=== PATIENT | male | born 1995 | race Caucasian/White ===

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

== ENCOUNTER 2017-06-16 10:00 | Emergency (ER) | payer OTHER ==
[2017-06-16 10:14] VITALS: BP 170/110
--- NOTE | 2017-06-16 10:33 | UC ---
Abdominal Pain Male HPI - HPI Summary HPI Summary: 2 weeks ago dx with presumptive flu---treated with Tamiflu---2 weeks ago the symptoms were associated with throwing up blood, bile and undigested food--- today comes to urgent care with right shoulder pain no injury---abdomen pain, vomiting water, food bile some blood-- - History of Current Complaint Chief Complaint: UCGeneralIllness Stated Complaint: SHOULDER PAIN, FEVER, AND NAUSEA Time Seen by Provider: 06/16/17 10:15 Hx Obtained From: Patient Onset/Duration: Gradual Onset, Lasting Weeks - 2, Worse Since - last night Timing: Constant Severity Initially: Moderate Severity Currently: Moderate Pain Intensity: 7 Pain Scale Used: 0-10 Numeric Location: Diffuse Radiates: Yes Radiates to: Back - right shoulder Aggravating Factor(s): Food Associated Signs And Symptoms: Positive: Fever, Decreased Appetite, Nausea, Vomiting - Allergies/Home Medications Allergies/Adverse Reactions: Allergies Allergy/AdvReac Type Severity Reaction Status Date / Time No Known Allergies Allergy Verified 11/26/16 18:45 Home Medications: Home Medications Tretinoin [Retin-A] 45 gm TP DAILY 06/16/17 [History Confirmed 06/16/17] PMH/Surg Hx/FS Hx/Imm Hx Previously Healthy: Yes - Surgical History Surgical History: Yes Surgery Procedure, Year, and Place: EAR TUBES - Family History Known Family History: Positive: None - Social History Occupation: Student Lives: Dormitory/Roommates Alcohol Use: Occasionally Substance Use Type: None Substance Use Comment - Amount & Last Used: unknown Smoking Status (MU): Never Smoked Tobacco Review of Systems Constitutional: Chills, Fatigue Skin: Negative Eyes: Negative ENT: Negative Respiratory: Negative Cardiovascular: Negative Gastrointestinal: Abdominal Pain - right shoulder pain, Vomiting, Nausea Genitourinary: Negative Motor: Negative Neurovascular: Negative Musculoskeletal: Negative, Arthralgia Neurological: Negative Psychological: Negative Is Patient Immunocompromised?: No All Other Systems Reviewed And Are Negative: Yes Physical Exam Triage Information Reviewed: Yes Appearance: Ill-Appearing, Pain Distress, Thin Vital Signs: Initial Vital Signs Temp 99 F 06/16/17 10:11 Pulse 120 06/16/17 10:11 Resp 20 06/16/17 10:11 BP 170/110 06/16/17 10:11 Pulse Ox 100 06/16/17 10:11 Vital Signs Reviewed: Yes Eye Exam: Normal Eyes: Positive: Conjunctiva Clear ENT Exam: Normal ENT: Positive: Normal ENT inspection, Hearing grossly normal, Pharynx normal, TMs normal. Negative: Nasal congestion, Tonsillar swelling, Tonsillar exudate, Trismus, Muffled voice, Hoarse voice, Dental tenderness, Sinus tenderness, Uvula midline Dental Exam: Normal Neck exam: Normal Neck: Positive: Supple, Nontender, No Lymphadenopathy Respiratory Exam: Normal Respiratory: Positive: Chest non-tender, Lungs clear, Normal breath sounds, No respiratory distress, No accessory muscle use Cardiovascular Exam: Normal Cardiovascular: Positive: No Murmur, Pulses Normal, Brisk Capillary Refill, Tachycardia Abdominal Exam: Other Abdomen Description: Positive: Nontender, Other: - right shoulder pain. Negative: No Organomegaly Bowel Sounds: Positive: Present Musculoskeletal Exam: Normal Musculoskeletal: Positive: Strength Intact, ROM Intact, No Edema Neurological Exam: Normal Neurological: Positive: Alert, Muscle Tone Normal Psychological Exam: Normal Skin: Positive: Other - pale warm dry Abd Pain Male Course/Dx - Course [place] Of Treatment: [place] [facility] by private car - Differential Dx/Clinical Impression Provider Diagnoses: acute nausea vomiting, abdomen pain, hypertensive with dx of HTN, Discharge - Sign-Out/Discharge Documenting (check all that apply): Discharge - Discharge Plan Condition: Guarded Disposition: HOME Discharge Disposition Comment: [facility] to [facility] Patient Education Materials: Acute Abdominal Pain (ED) Referrals: [facility] [Outside] No Primary Care Phys,NOPCP [Primary Care Provider] - Additional Instructions: Please report directly to the emergency department - Billing Disposition and Condition Condition: GUARDED Disposition: HOME
== END 2017-06-16 10:30 | disposition home or self-care (01) ==
LOC: UCEAST 10:00
DX: M25.511 Pain in right shoulder (principal); R11.2 Nausea with vomiting, unspecified; R10.9 Unspecified abdominal pain; R50.9 Fever, unspecified; I10 Essential (primary) hypertension
CPT/HCPCS: 99212; G0463

== ENCOUNTER 2017-06-16 10:47 | Emergency (ER) | payer OTHER ==
[2017-06-16] MEDS ORDERED: Famotidine IV* 10 MG/ML 2 ML (20 mg) IV ONE (11:15)
[2017-06-16] MEDS ORDERED: Acetaminophen TAB* 325 MG PO ONE (11:15)
[2017-06-16] MEDS ORDERED: NS 0.9% 1000 ML* 1,000 ML IV ONE (11:15)
--- NOTE | 2017-06-16 11:49 | RAD ---
HISTORY: Fever COMPARISONS: None VIEWS: 2: Frontal and lateral views of the chest. FINDINGS: CARDIOMEDIASTINAL SILHOUETTE: The cardiomediastinal silhouette is normal. BHAVANI: The bhavani are normal. PLEURA: The costophrenic angles are sharp. No pleural abnormalities are noted. LUNG PARENCHYMA: There is patchy alveolar opacification of the infrahilar right lower lung. ABDOMEN: The upper abdomen is clear. There is no subphrenic gas. BONES AND SOFT TISSUES: No bone or soft tissue abnormalities are noted. OTHER: None. IMPRESSION: PATCHY RIGHT LOWER LUNG CONSOLIDATION. RECOMMEND FOLLOW-UP UNTIL RESOLUTION TO EXCLUDE UNDERLYING PULMONARY PARENCHYMAL PATHOLOGY.
[2017-06-16] MEDS ORDERED: Levofloxacin 750 MG IVPREMIX(* 750 MG/150 ML BAG IVPB ONE (11:57)
[2017-06-16 11:58] LABS: Hematocrit 39 % (42-52); Hemoglobin 13.6 g/dl (14.0-18.0); Mean Corpuscular HGB Conc 35 g/dl (31-36); Mean Corpuscular Hemoglobin 30 pg (27-31); Mean Corpuscular Volume 87 fL (80-94); Mean Platelet Volume 9.5 um3 (7.4-10.4); Platelet Count 228 10^3/ul (150-450); Red Blood Count 4.51 10^6/ul (4.0-5.4); Red Cell Distribution Width 14 % (10.5-15); White Blood Count 27.1 10^3/ul (3.5-10.8)
[2017-06-16 12:14] LABS: ABS Basophils 0 10^3/ul (0-0.2); ABS Eosinophils 0 10^3/ul (0-0.6); ABS Lymphocytes 0.6 10^3/ul (1.0-4.8); ABS Monocytes 2.9 10^3/ul (0-0.8); ABS Neutrophils 23.5 10^3/ul (1.5-7.7); ABS Nucleated RBC 0 10^3/ul; Eosinophil % 0 % (0-6); Lymphocyte % 2.4 % (25-47); Nucleated Red Blood Cells % 0
[2017-06-16 12:15] LABS: EGFR Non-African American 98.7 (>60)
--- NOTE | 2017-06-16 12:57 | RAD ---
HISTORY: Right upper quadrant pain COMPARISONS: None TECHNIQUE: Multiple transverse and longitudinal ultrasound images were obtained of the right upper quadrant of the abdomen using grayscale and color Doppler imaging. FINDINGS: LIVER: The liver is normal in shape, size, contour, and echogenicity. There are no focal parenchymal masses. There is normal hepatopedal flow of the portal vein on Doppler imaging. BILIARY TREE: There is no intrahepatic or extrahepatic biliary dilatation. The common duct measures 0.3 cm. GALLBLADDER: The gallbladder is well-visualized. There is no cholelithiasis, gallbladder wall thickening, pericholecystic fluid, or sonographic Smith sign. PANCREAS: The head of the pancreas is unremarkable. The tail of the pancreas is not well visualized secondary to overlying bowel gas. RIGHT KIDNEY: The right kidney is normal in shape, size, contour, and echogenicity. There is no hydronephrosis or nephrolithiasis. The right kidney measures 12 x 6.9 x 5.8 cm. AORTA AND IVC: The aorta and IVC are unremarkable. FLUID: There are no pleural effusions. There is no free fluid within the hepatorenal recess. OTHER FINDINGS: None. IMPRESSION: NO ACUTE SONOGRAPHIC PATHOLOGY OF THE VISUALIZED PORTION OF THE ABDOMEN.
[2017-06-16 15:49] LABS: Urine Appearance Clear; Urine Blood Negative (Negative); Urine Color Yellow; Urine Ketones Negative (Negative); Urine Protein Negative (Negative); Urine Specific Gravity 1.018 (1.010-1.030); Urine Urobilinogen Negative (Negative)
[2017-06-16] MEDS ORDERED: Ibuprofen TAB* 800 MG PO ONE (16:18)
--- NOTE | 2017-06-16 16:31 | ED ---
Trisha Avila Gabriel, scribed for Victor M Burgess MD on 06/16/17 at 1118 . GI/ HPI - HPI Summary HPI Summary: This patient is a 22 year old M presenting to [facility] with a chief complaint of n/ v that began and persisted all night last night. [facility] and was diagnosed with the flu. Pt took 5 days of tamiflu and felt better until 2 days ago when he became febrile. The patient rates the pain 7/10 in severity. Patient reports right shoulder pain and ABD pain. Patient denies trauma, CP, and SOB. - History of Current Complaint Chief Complaint: EDNauseaVomitDiarrh Time Seen by Provider: 06/16/17 11:06 Stated Complaint: NAUSEA/SHLD PAIN Hx Obtained From: Patient Onset/Duration: Started Days Ago - 2, Still Present Timing: Constant Severity: Moderate Current Severity: Moderate Pain Intensity: 7 Location of Pain: Diffuse Associated Signs and Symptoms: Positive: Other: - n/v, febrile, shoulder pain, and some ABD pain - Allergy/Home Medications Allergies/Adverse Reactions: Allergies Allergy/AdvReac Type Severity Reaction Status Date / Time No Known Allergies Allergy Verified 06/16/17 10:48 PMH/Surg Hx/FS Hx/Imm Hx Endocrine/Hematology History: Denies: Hx Diabetes Cardiovascular History: Denies: Hx Hypertension, Hx Pacemaker/ICD Respiratory History: Reports: Hx Seasonal Allergies Denies: Hx Chronic Obstructive Pulmonary Disease (COPD) Sensory History: Denies: Hx Hearing Aid Psychiatric History: Denies: Hx Eating Disorder, Hx Panic Disorder, Hx of Violent Episodes Against Others - Surgical History Surgery Procedure, Year, and Place: EAR TUBES Infectious Disease History: No Infectious Disease History: Denies: Traveled Outside the [place] in Last 30 Days - Family History Known Family History: Positive: Other - mother has MS - Social History Occupation: Student Alcohol Use: Occasionally Hx Substance Use: No Substance Use Type: Reports: None Substance Use Comment - Amount & Last Used: unknown Hx Tobacco Use: No Smoking Status (MU): Never Smoked Tobacco Review of Systems Constitutional: Negative - trauma Positive: Fever Negative: Chest Pain Negative: Shortness Of Breath Positive: Abdominal Pain, Vomiting, Nausea Positive: Other - right shoulder pain All Other Systems Reviewed And Are Negative: Yes Physical Exam - Summary Physical Exam Summary: VITAL SIGNS: Reviewed. GENERAL: Patient is a well-developed and nourished male who is lying comfortable in the stretcher. Patient is not in any acute respiratory distress. Pt feels febrile HEAD AND FACE: No signs of trauma. No ecchymosis, hematomas or skull depressions. No sinus tenderness. EYES: PERRLA, EOMI x 2, No injected conjunctiva, no nystagmus. EARS: Hearing grossly intact. Ear canals and tympanic membranes are within normal limits. MOUTH: Oropharynx within normal limits. NECK: Supple, trachea is midline, no adenopathy, no JVD, no carotid bruit, no c- spine tenderness, neck with full ROM. CHEST: Symmetric, no tenderness at palpation LUNGS: Clear to auscultation bilaterally. No wheezing or crackles. CVS: Regular rate and rhythm, S1 and S2 present, no murmurs or gallops appreciated. ABDOMEN: Soft, No signs of distention. No rebound no guarding, and no masses palpated. Bowel sounds are normal. Positive epigastria and RUQ tenderness. EXTREMITIES: FROM in all major joints, no edema, no cyanosis or clubbing. NEURO: Alert and oriented x 3. No acute neurological deficits. Speech is normal and follows commands. SKIN: Dry and warm Triage Information Reviewed: Yes Vital Signs On Initial Exam: Initial Vitals Temp Pulse Resp BP Pulse Ox 100.2 F 123 14 117/62 100 06/16/17 10:48 06/16/17 10:48 06/16/17 10:48 06/16/17 10:48 06/16/17 10:48 Vital Signs Reviewed: Yes Diagnostics - Vital Signs Vital Signs Temp Pulse Resp BP Pulse Ox 06/16/17 10:48 100.2 F 123 14 117/62 100 - Laboratory Lab Results: Lab Results 06/16/17 06/16/17 06/16/17 Range/Units 11:40 11:40 11:40 WBC 27.1 H (3.5-10.8) 10^3/ul RBC 4.51 (4.0-5.4) 10^6/ul Hgb 13.6 L (14.0-18.0) g/dl Hct 39 L (42-52) % MCV 87 (80-94) fL MCH 30 (27-31) pg MCHC 35 (31-36) g/dl RDW 14 (10.5-15) % Plt Count 228 (150-450) 10^3/ul MPV 9.5 (7.4-10.4) um3 Neut % (Auto) 87.0 H (38-83) % Lymph % (Auto) 2.4 L (25-47) % Gilliam % (Auto) 10.5 H (0-7) % Eos % (Auto) 0 (0-6) % Baso % (Auto) 0.1 (0-2) % Absolute Neuts (auto) 23.5 H (1.5-7.7) 10^3/ul Absolute Lymphs (auto) 0.6 L (1.0-4.8) 10^3/ul Absolute Monos (auto) 2.9 H (0-0.8) 10^3/ul Absolute Eos (auto) 0 (0-0.6) 10^3/ul Absolute Basos (auto) 0 (0-0.2) 10^3/ul Absolute Nucleated RBC 0 10^3/ul Nucleated RBC % 0 Sodium 132 L (139-145) mmol/L Potassium 3.9 (3.5-5.0) mmol/L Chloride 101 (101-111) mmol/L Carbon Dioxide 22 (22-32) mmol/L Anion Gap 9 (2-11) mmol/L BUN 11 (6-24) mg/dL Creatinine 0.97 (0.67-1.17) mg/dL Est GFR ( Amer) 126.9 (>60) Est GFR (Non-Af Amer) 98.7 (>60) BUN/Creatinine Ratio 11.3 (8-20) Glucose 156 H (70-100) mg/dL Lactic Acid 1.8 (0.5-2.0) mmol/L Calcium 9.1 (8.6-10.3) mg/dL Total Bilirubin 2.30 H (0.2-1.0) mg/dL AST 16 (13-39) U/L ALT 15 (7-52) U/L Alkaline Phosphatase 62 (34-104) U/L Total Creatine Kinase 66 (10-223) U/L C-Reactive Protein 165.50 H (< 5.00) mg/L Total Protein 7.6 (6.4-8.9) g/dL Albumin 4.0 (3.2-5.2) g/dL Globulin 3.6 (2-4) g/dL Albumin/Globulin Ratio 1.1 (1-3) Amylase 31 (29-103) U/L Lipase < 10 L (11.0-82.0) U/L Urine Color Urine Appearance Urine pH (5-9) Ur Specific Monett (1.010-1.030) Urine Protein (Negative) Urine Ketones (Negative) Urine Blood (Negative) Urine Nitrate (Negative) Urine Bilirubin (Negative) Urine Urobilinogen (Negative) Ur Leukocyte Esterase (Negative) Urine WBC (Auto) (Absent) Urine RBC (Auto) (Absent) Urine Bacteria (Absent) Urine Glucose (Negative) 06/16/17 Range/Units 14:32 WBC (3.5-10.8) 10^3/ul RBC (4.0-5.4) 10^6/ul Hgb (14.0-18.0) g/dl Hct (42-52) % MCV (80-94) fL MCH (27-31) pg MCHC (31-36) g/dl RDW (10.5-15) % Plt Count (150-450) 10^3/ul MPV (7.4-10.4) um3 Neut % (Auto) (38-83) % Lymph % (Auto) (25-47) % Gilliam % (Auto) (0-7) % Eos % (Auto) (0-6) % Baso % (Auto) (0-2) % Absolute Neuts (auto) (1.5-7.7) 10^3/ul Absolute Lymphs (auto) (1.0-4.8) 10^3/ul Absolute Monos (auto) (0-0.8) 10^3/ul Absolute Eos (auto) (0-0.6) 10^3/ul Absolute Basos (auto) (0-0.2) 10^3/ul Absolute Nucleated RBC 10^3/ul Nucleated RBC % Sodium (139-145) mmol/L Potassium (3.5-5.0) mmol/L Chloride (101-111) mmol/L Carbon Dioxide (22-32) mmol/L Anion Gap (2-11) mmol/L BUN (6-24) mg/dL Creatinine (0.67-1.17) mg/dL Est GFR ( Amer) (>60) Est GFR (Non-Af Amer) (>60) BUN/Creatinine Ratio (8-20) Glucose (70-100) mg/dL Lactic Acid (0.5-2.0) mmol/L Calcium (8.6-10.3) mg/dL Total Bilirubin (0.2-1.0) mg/dL AST (13-39) U/L ALT (7-52) U/L Alkaline Phosphatase (34-104) U/L Total Creatine Kinase (10-223) U/L C-Reactive Protein (< 5.00) mg/L Total Protein (6.4-8.9) g/dL Albumin (3.2-5.2) g/dL Globulin (2-4) g/dL Albumin/Globulin Ratio (1-3) Amylase (29-103) U/L Lipase (11.0-82.0) U/L Urine Color Yellow Urine Appearance Clear Urine pH 6.0 (5-9) Ur Specific Monett 1.018 (1.010-1.030) Urine Protein Negative (Negative) Urine Ketones Negative (Negative) Urine Blood Negative (Negative) Urine Nitrate Negative (Negative) Urine Bilirubin Negative (Negative) Urine Urobilinogen Negative (Negative) Ur Leukocyte Esterase 2+ A (Negative) Urine WBC (Auto) 3+(>20/hpf) A (Absent) Urine RBC (Auto) Absent (Absent) Urine Bacteria Absent (Absent) Urine Glucose Negative (Negative) Result Diagrams: 06/16/17 11:40 06/16/17 11:40 Lab Statement: Any lab studies that have been ordered have been reviewed, and results considered in the medical decision making process. - Radiology CXR Radiology Interpretation Completed By: Radiologist - PATCHY RIGHT LOWER LUNG CONSOLIDATION. RECOMMEND FOLLOW-UP UNTIL RESOLUTION TO EXCLUDE UNDERLYING PULMONARY PARENCHYMAL PATHOLOGY. ED physician has reviewed this radiology report. - Ultrasound No standard instances Ultrasound Interpretation Completed By: Radiologist - US gallbladder reveals NO ACUTE SONOGRAPHIC PATHOLOGY OF THE VISUALIZED PORTION OF THE ABDOMEN. ED physician has reviewed this radiology report. Re-Evaluation - Re-Evaluation First Eval Re-Evaluation Time: 16:01 Change: Unchanged Comment: Dr. Miranda has come and examined the patient and she has decided that he should be discharged home. GIGU Course/Dx - Course Assessment/Plan: This patient is a 22 year old M presenting to [facility] with a chief complaint of n/v that began and persisted all night last night. [facility] and was diagnosed with the flu. Pt took 5 days of tamiflu and felt better until 2 days ago when he became febrile. The patient rates the pain 7/10 in severity. Patient reports right shoulder pain and ABD pain. Patient denies trauma, CP, and SOB. CXR reveals, per radiologist, PATCHY RIGHT LOWER LUNG CONSOLIDATION. RECOMMEND FOLLOW-UP UNTIL RESOLUTION TO EXCLUDE. UNDERLYING PULMONARY PARENCHYMAL PATHOLOGY. US gallbladder reveals NO ACUTE SONOGRAPHIC PATHOLOGY OF THE VISUALIZED PORTION OF THE ABDOMEN. Test results with no significant abnormalities except for WBC 27.1 with left shift and a CRP of 165. Pt seems to have soft blood pressure, is febrile, and is still tachycardic. Therefore he was given Levaqiun, IV fluid, and Tylenol. Since the patient seems to be going into sepsis I discussed the case with Dr. Miranda who accepts the patient for admission. He will be diagnosed with sepsis and pneumonia. The patient is agreeable with this plan. The pt is hemodynamically stable, alert and oriented x3. Dr. Miranda assess and examined the patient and she has decided to discharged the patient home. Patient agreed. I will print the discharged for Dr. Miranda. - Diagnoses Provider Diagnoses: PNA (pneumonia), Sepsis - Physician Notifications Discussed Care Of Patient With: Whit Miranda Time Discussed With Above Provider: 13:42 Instructed by Provider To: Admit As Inpatient - Critical Care Time Critical Care Time: 30-74 min - 40 min Discharge - Sign-Out/Discharge Documenting (check all that apply): Discharge - Discharge Plan Condition: Stable Disposition: HOME Prescriptions: Levofloxacin TAB* [Levaquin TAB*] 750 mg PO DAILY #9 tab Ondansetron TAB* [Zofran 4 MG Tab*] 4 mg PO Q6H PRN #15 tab PRN Reason: Vomiting Patient Education Materials: Community Acquired Pneumonia (DC) Referrals: [facility]IAN REFERRAL [Outside] - 3 Days Additional Instructions: RETURN TO THE EMERGENCY DEPARTMENT FOR CHANGING OR WORSENING SYMPTOMS. - Billing Disposition and Condition Condition: STABLE Disposition: HOME The documentation as recorded by the Trisha thompson Gabriel accurately reflects the service I personally performed and the decisions made by , Victor M Burgess MD.
[2017-06-16 17:28] VITALS: BP 123/56
--- NOTE | 2017-06-16 22:12 | CONS ---
CONSULTATION NOTE: DATE OF CONSULT: 06/16/17 - EMERGENCY DEPT TIME OF CONSULTATION: 3 p.m. CHIEF COMPLAINT: Nausea, vomiting, cough, and shoulder pain. HISTORY OF PRESENT ILLNESS: This is a 22-year-old man who had Influenza two weeks ago and is presenting to the emergency department with right shoulder pain that began last night while he was watching a movie. It was associated with some nausea and vomiting and he also reports a productive cough and chills over the past two days. He had Influenza two weeks ago, took a five-day course of Tamiflu and felt that he recovered fully. He has been attending his courses at [employer] without any issue; however, over the past two days, he developed some chills, cough productive of yellow sputum, malaise and then last night while he was watching the movie developed deep right-sided shoulder pain that he could not localize. He had several episodes of nausea and vomiting throughout the night and this morning went to urgent care where they sent him to the emergency department. In the emergency department, he was found to have a right lower lobe pneumonia, so we are asked to evaluate him for admission. PAST MEDICAL HISTORY: None. HOME MEDICATIONS: None. ALLERGIES: No known drug allergies. SOCIAL HISTORY: He lives in house at [employer]. He is studying economic. He does not smoke cigarettes. He drinks alcohol occasionally but he has not had any recent binges or black outs. REVIEW OF SYSTEMS: Positive for chills, nausea, vomiting, productive cough. Negative for diarrhea, travel, rashes, headache, abdominal pain, chest pain, weakness. PHYSICAL EXAM: Temperature 100.9, heart rate 98, pulse ox 97% on room air, blood pressure 108/56, respiratory rate 18. General: Alert, well appearing, young man, in no distress. HEENT: Pupils are equal, round, and reactive to light. Normal conjunctivae. Mucosa is moist. He has no pharyngeal exudates or erythema. He has no cervical or supraclavicular lymphadenopathy. Chest: Regular rate and rhythm with no murmurs. His lungs are clear with good air movement. He has no wheezes or rhonchi. Abdomen: Soft, nontender, nondistended. His Smith sign is negative. His obturator sign is negative. His liver is nonpalpable. Extremities: No edema. No ulcers. His right shoulder is nontender to palpation. He has full active and passive range of motion. His strength is 5/5 in all 4 extremities and provocative right shoulder testing is negative. DIAGNOSTIC STUDIES/LAB DATA: White blood cell 27.5, hemoglobin 13.6, platelets 228. Sodium 132, potassium 3.9, chloride 101, bicarb 22, creatinine 0.97, glucose 156, lactate 1.8. CRP 165. Lipase less than 10. Chest x-ray, patchy right lower lung consolidation. Recommended followup until resolution to exclude underlying pulmonary parenchymal pathology. Gallbladder ultrasound, no acute sonographic pathology of the visualized portion of the abdomen. The gallbladder was well visualized with no cholelithiasis, gallbladder wall thickening, pericholecystic fluid or sonographic Smith sign. ASSESSMENT AND PLAN: This is a 22-year-old man with no past medical history presenting with nausea, vomiting, shoulder pain, and cough and is found to have a right lower lobe pneumonia. 1. Right lower lobe pneumonia, community acquired. Based on his CURB-65 and PSI scores, he can safely be treated as an outpatient. I have discussed this option with him and he is amenable and actually prefers to be treated with outpatient antibiotics. He has no drug allergies and has not been on any recent antibiotics and has not been hospitalized recently. I would recommend treating with levofloxacin 750 mg daily to cover staph due to his recent Influenza, however, based on objective scoring system, he is low risk to be treated as an outpatient with p.o. antibiotics and has no need for IV antibiotics. 2. Right shoulder pain. I suspect this is referred pain due to his right lower lobe pneumonia. Provocative testing is negative on physical exam and a right upper quadrant ultrasound was negative in the emergency department. He does describe a visceral sounding pain, which is consistent with referred pain. He has no evidence of rotator cuff injury and has no history to support a mechanical dysfunction. He may benefit from analgesia, however, I will defer this to the emergency department physician. 3. Nausea and vomiting. Again this is likely related to the diaphragmatic irritation and can be treated with p.r.n. Zofran. This has since resolved and he feels well at this time without nausea or vomiting. Thank you for allowing us to participate in the care of this patient. Please call us back with any further questions. [id number]/[facility] #: [id number] KALEIDA HEALTHNeymar
== END 2017-06-16 17:27 | disposition home or self-care (01) ==
LOC: ED 10:47
DX: A41.9 Sepsis, unspecified organism (principal); J18.9 Pneumonia, unspecified organism; R11.2 Nausea with vomiting, unspecified; M25.511 Pain in right shoulder
CPT/HCPCS: 36415; 71046; 76705; 80053; 81003; 81015; 82150; 82550; 83605; 83690; 85025; 86140; 87040; 87086; 96365; 96375; 99291; A9270-GY

== ENCOUNTER 2017-06-17 17:51 | Observation (INO) | payer OTHER ==
[2017-06-17] MEDS ORDERED: NS 0.9% 1000 ML* 1,000 ML IV ONE (19:47)
[2017-06-17 20:06] LABS: Hematocrit 37 % (42-52); Hemoglobin 12.5 g/dl (14.0-18.0); Mean Corpuscular HGB Conc 34 g/dl (31-36); Mean Corpuscular Hemoglobin 30 pg (27-31); Mean Corpuscular Volume 88 fL (80-94); Mean Platelet Volume 9.1 um3 (7.4-10.4); Platelet Count 255 10^3/ul (150-450); Red Blood Count 4.15 10^6/ul (4.0-5.4); Red Cell Distribution Width 13 % (10.5-15); White Blood Count 24.7 10^3/ul (3.5-10.8)
[2017-06-17 20:10] LABS: ABS Basophils 0.1 10^3/ul (0-0.2); ABS Eosinophils 0 10^3/ul (0-0.6); ABS Lymphocytes 1.3 10^3/ul (1.0-4.8); ABS Monocytes 2.1 10^3/ul (0-0.8); ABS Neutrophils 21.2 10^3/ul (1.5-7.7); ABS Nucleated RBC 0 10^3/ul; Eosinophil % 0.1 % (0-6); Lymphocyte % 5.3 % (25-47); Nucleated Red Blood Cells % 0
[2017-06-17 20:15] LABS: INR 1.61 (0.77-1.02)
[2017-06-17 20:23] LABS: EGFR Non-African American 110.4 (>60)
[2017-06-17] MEDS ORDERED: Iohexol 350* (CONTRAST) 500 ML MDV IV ONE (20:23)
--- NOTE | 2017-06-17 20:42 | RAD ---
INDICATION: Chest pain. Right upper quadrant pain. Negative gallbladder sonogram. Evaluate for pulmonary embolus. COMPARISON: Gallbladder sonogram June 16, 2017; chest x-ray June 16, 2017 TECHNIQUE: Axial source images were obtained from the thoracic inlet to the hemidiaphragms following administration of [address] angiographic technique was utilized. Coronal and sagittal reconstructed images were acquired. CHEST FINDINGS: Neck/thyroid: The visualized neck to include the thyroid appear normal. Chest wall: There are no acute abnormalities of the bony thorax or chest wall. There is no supraclavicular, infraclavicular, or axillary lymphadenopathy. Lungs : There is a right lower lobe infiltrate with consolidation. There is a small right-sided effusion. The pulmonary interstitium appears normal. There are no endobronchial lesions. Cardiomediastinal structures: There is no CT evidence of acute pulmonary embolic disease. The heart is normal in size. There is no pericardial effusion. There is no evidence of aortic aneurysm or dissection. There is no mediastinal or hilar adenopathy. There is presumed residual thymic tissue in the prevascular space The esophagus appears normal. Pleura : There are no pleural-based masses or effusions. Other: None. IMPRESSION: RIGHT LOWER LOBE INFILTRATE AND EFFUSION. SUGGEST CHEST X-RAY FOLLOW-UP. NO CT EVIDENCE OF ACUTE PULMONARY EMBOLIC DISEASE. PRESUMED RESIDUAL THYMIC TISSUE.
[2017-06-17] MEDS ORDERED: Vancomycin(*) 1,000 MG in NS 0.9% 250 ML* 250 ML IVPB ONE (20:57)
[2017-06-17] MEDS ORDERED: Al Hydrox/Mg Hydrox/Simet LIQ* 30 ML UDC PO PRN (22:28)
[2017-06-18] MEDS: Acetaminophen TAB* 325 MG PO PRN ×4 (00:41→20:06)
--- NOTE | 2017-06-18 03:35 | HP ---
CC: [facility] * HISTORY AND PHYSICAL: DATE OF ADMISSION: 06/17/17 TIME OF EVALUATION: 2200. PRIMARY CARE PHYSICIAN: [facility]. CHIEF COMPLAINT: Hemoptysis. HISTORY OF PRESENT ILLNESS: This is a 22-year-old male who presented to the emergency room on 06/16/17 after having influenza 2 weeks ago, was diagnosed with pneumonia, was consulted by the hospitalist service. They sent him home on Levaquin and a prescription with Zofran. The patient states that he was doing okay, no longer having any fevers. No more lightheadedness. However, he was still having some pleuritic pain on the right side and began coughing up blood this afternoon, so he thought that [facility] would have been closed for spring and came here instead. He did have nausea, vomiting yesterday. He is no longer having any nausea, vomiting. The coughing seems to be unchanged , but he is no longer gagging on his mucus and as mentioned, no longer having any fevers. No diarrhea. No abdominal pain. No urinary symptoms. No rash otherwise. Review of systems is negative. In the emergency room, the patient had labs, imaging. He was given a liter of fluid and vancomycin, referred to the hospitalist service for further evaluation. PAST MEDICAL HISTORY: Unremarkable. Just diagnosed with community acquired pneumonia on 06/16/17. MEDICATIONS: 1. Retin-A 45 g topically daily. 2. Zofran 4 mg q.6 hours as needed. 3. Levaquin 750 mg p.o. daily. He has completed 2 days of Levaquin. ALLERGIES: No known drug allergies. FAMILY HISTORY: Parents are alive and healthy. 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 He denies any smoking. No illicit drugs. He occasionally drinks alcohol. He is from [place], [place]. REVIEW OF SYSTEMS: A 14-point review of systems mentioned in the HPI, otherwise negative. PHYSICAL EXAMINATION GENERAL: In no acute distress. Resting comfortably. VITAL SIGNS: Temp 100.3, pulse rate 106, respiratory rate 20, oxygen saturation 98% on room air, and blood pressure 107/58. HEENT: Head: Normocephalic. Pupils are equal and reactive. Oropharynx: Mucous membranes moist. NECK: Supple. No lymphadenopathy. RESPIRATORY: Some faint rhonchi in the right lower lung. No tachypnea. No increased work of breathing. CARDIAC: Tachycardia. No murmurs, rubs or gallops. ABDOMEN: Soft, nontender, nondistended. EXTREMITIES: No clubbing, cyanosis, or edema. +2 DPs. NEUROLOGIC: Alert and oriented x3. No gross focal neurological deficits. DIAGNOSTIC STUDIES/LAB DATA: White count 24.7, hemoglobin 12.5, hematocrit 37 , platelets 255. INR is 1.61. Sodium 135, potassium 4.2, chloride 100, bicarb 26, BUN 13, creatinine 0.88, glucose 121. Total bili is 1.3. Urine shows 2+ leukocytes. CTA: Right lower lobe infiltrate and effusion, suggest chest x- ray followup. No CT evidence of acute pulmonary embolic disease, presumed residual thymic tissue. ASSESSMENT: This is a 22-year-old male with a diagnosis of community-acquired pneumonia after recent influenza type virus, who presents to the emergency room with hemoptysis. 1. Hemoptysis. I suspect this is benign in the setting of persistent coughing. He did have a mild decrease in his H and H from 06/16/17 to today. His white count is improving. He is no longer febrile. He no longer has high-grade temperatures. I suspect clinically he is improving, but now with hemoptysis. Plan: We will admit him for observation. I am going to continue him on his p.o. Levaquin. We will keep him on IV fluids and monitor his hemoptysis and obtain an H and H in the morning. He also was noted to have an elevated INR, could be in the setting of his acute illness or he may have an underlying coagulopathy. We will repeat an INR in the morning and keep him on a soft diet in the interim. 2. FEN. As mentioned IV fluids with a soft diet. 3. DVT prophylaxis. The patient scores a 0 on the risk profile. We will encourage ambulation. 4. Code status: Full code. TIME SPENT: Greater than 45 minutes spent doing the history and physical, more than half time spent in direct patient contact. [id number]/[facility] #: [id number] KENDRICK
--- NOTE | 2017-06-18 05:05 | ED ---
Anuel Avila Tecjoon, scribed for Jud Goss MD on 06/17/17 at 1949 . HPI Cardiac - HPI Summary HPI Summary: This patient is a 22 year old male presenting to [facility] with a chief complaint of hemoptysis since earlier today. Patient states that the blood is not frothy, but phlemy, at around a teaspoons amount. Patient states that he has had around 5-6 episodes. The pain is rated 0/10 in severity currently. Symptoms aggravated by deep breaths. Symptoms alleviated by nothing. The patient treated the sx with Levaquin and Tamiflu [employer]. Patient additionally reports RUQ abd pain when breathing too heavily or during coughing episodes. Patient denies fever or chills. Patient was seen two weeks ago and was diagnosed with the flu. Patient was given levaquin and Tamiflu. - History of Current Complaint Chief Complaint: EDGeneral Stated Complaint: COUGHING UP BLOOD Time Seen by Provider: 06/17/17 19:20 Hx Obtained From: Patient Onset/Duration: Started Days Ago - 1 Timing: Intermittent Current Severity: None Pain Intensity: 0 Pain Scale Used: 0-10 Numeric Aggravating Factor(s): Deep Breaths Alleviating Factor(s): Nothing Associated Signs and Symptoms: Positive: Negative - fever, chills, Other: - hemoptysis - Allergy/Home Medications Allergies/Adverse Reactions: Allergies Allergy/AdvReac Type Severity Reaction Status Date / Time No Known Allergies Allergy Verified 06/16/17 10:48 PMH/Surg Hx/FS Hx/Imm Hx Previously Healthy: Yes Endocrine/Hematology History: Denies: Hx Diabetes Cardiovascular History: Denies: Hx Hypertension, Hx Pacemaker/ICD Respiratory History: Reports: Hx Seasonal Allergies Denies: Hx Chronic Obstructive Pulmonary Disease (COPD) Sensory History: Denies: Hx Hearing Aid EENT History: Denies: Hx Deafness Psychiatric History: Denies: Hx Eating Disorder, Hx Panic Disorder, Hx of Violent Episodes Against Others - Surgical History Surgery Procedure, Year, and Place: EAR TUBES Infectious Disease History: No Infectious Disease History: Denies: Traveled Outside the [place] in Last 30 Days - Family History Known Family History: Positive: Other - mother has MS - Social History Occupation: Student Alcohol Use: Occasionally Hx Substance Use: No Substance Use Type: Reports: None Substance Use Comment - Amount & Last Used: unknown Hx Tobacco Use: No Smoking Status (MU): Never Smoked Tobacco Review of Systems Negative: Fever, Chills Positive: Cough, Other - hemoptysis Positive: Abdominal Pain All Other Systems Reviewed And Are Negative: Yes Physical Exam - Summary Physical Exam Summary: VITAL SIGNS: Reviewed. GENERAL: Patient is a well-developed and nourished male who is lying comfortable in the stretcher. HEAD AND FACE: No signs of trauma. No ecchymosis, hematomas or skull depressions. No sinus tenderness. EYES: PERRLA, EOMI x 2, No injected conjunctiva, no nystagmus. EARS: Hearing grossly intact. Ear canals and tympanic membranes are within normal limits. MOUTH: Oropharynx within normal limits. NECK: Supple, trachea is midline, no adenopathy, no JVD, no carotid bruit, no c- spine tenderness, neck with full ROM. CHEST: Symmetric, no tenderness at palpation LUNGS: Decreased breath sounds bilaterally. CVS: Regular rate and rhythm, S1 and S2 present, no murmurs or gallops appreciated. ABDOMEN: Soft, non-tender. No signs of distention. No rebound no guarding, and no masses palpated. Bowel sounds are normal. EXTREMITIES: FROM in all major joints, no edema, no cyanosis or clubbing. NEURO: Alert and oriented x 3. No acute neurological deficits. Speech is normal and follows commands. SKIN: Dry and warm Triage Information Reviewed: Yes Vital Signs On Initial Exam: Initial Vitals Temp Pulse Resp BP Pulse Ox 100.3 F 106 20 107/58 98 06/17/17 17:59 06/17/17 17:59 06/17/17 17:59 06/17/17 17:59 06/17/17 17:59 Vital Signs Reviewed: Yes Diagnostics - Vital Signs Vital Signs Temp Pulse Resp BP Pulse Ox 06/17/17 17:59 100.3 F 106 20 107/58 98 - Laboratory Result Diagrams: 06/17/17 19:56 06/17/17 19:56 Lab Statement: Any lab studies that have been ordered have been reviewed, and results considered in the medical decision making process. - CT CT Chest/Thorax CT Interpretation: Positive (See Comments) - CT Chest/Thorax reveals, per radiologist, IMPRESSION: RIGHT LOWER LOBE INFILTRATE AND EFFUSION. SUGGEST CHEST X-RAY FOLLOW-UP. NO CT EVIDENCE OF ACUTE PULMONARY EMBOLIC DISEASE. PRESUMED RESIDUAL THYMIC TISSUE. ED physician has reviewed this radiology report. CT Interpretation Completed By: Radiologist Disposition - Course Course Of Treatment: This patient is a 22 year old male presenting to [facility] with a chief complaint of hemoptysis since earlier today. Patient states that the blood is not frothy, but phlemy, at around a teaspoons amount. Patient states that he has had around 5-[address] Chest/Thorax reveals, per radiologist, IMPRESSION: RIGHT LOWER LOBE INFILTRATE AND EFFUSION. SUGGEST CHEST X-RAY FOLLOW-UP. NO CT EVIDENCE OF ACUTE PULMONARY EMBOLIC DISEASE. PRESUMED RESIDUAL THYMIC TISSUE. ED physician has reviewed this radiology report. Bloodwork Obtained. Urinalysis Obtained. In the ED course the patient was given Vancomycin, Iohexol. We discussed patient care with Dr. Duff ( Hospitalist) at 2030 and they agreed to admit the patient. Patient will be admitted with a diagnosis of Right lower lobe pneumonia and hemoptysis. The patient is agreeable with this plan. - Diagnoses Provider Diagnoses: Right lower lobe pneumonia, Hemoptysis - Physician Notifications Discussed Care Of Patient With: Magalis Duff - Hospitalist Time Discussed With Above Provider: 20:31 - We discussed patient care with Dr. Duff (Hospitalist) at 2030 and they agreed to admit the patient. Instructed by Provider To: Admit As Inpatient Discharge - Sign-Out/Discharge Documenting (check all that apply): Discharge - Admitted to hospitalist - Discharge Plan Condition: Stable Disposition: ADMITTED TO [facility] Referrals: [facility] - Neil COSBY [Primary Care Provider] - The documentation as recorded by the Anuel thompson Tecjoon accurately reflects the service I personally performed and the decisions made by , Jud Goss MD.
[2017-06-18] MEDS ORDERED: guaiFENesin ER TAB 600 MG ONE (06:04)
[2017-06-18] MEDS ORDERED: HYDROcodone/ACETAMIN 5-325 MG* 1 TAB ONE (06:10)
[2017-06-18] MEDS: HYDROcodone/ACETAMIN 5-325 MG* 1 TAB PO PRN ×3 (06:11→21:48)
[2017-06-18] MEDS: guaiFENesin ER TAB 600 MG PO SCH ×3 (06:11→21:48)
[2017-06-18 06:28] LABS: Hematocrit 33 % (42-52); Hemoglobin 11.2 g/dl (14.0-18.0); Mean Corpuscular HGB Conc 34 g/dl (31-36); Mean Corpuscular Hemoglobin 30 pg (27-31); Mean Corpuscular Volume 88 fL (80-94); Mean Platelet Volume 8.8 um3 (7.4-10.4); Platelet Count 235 10^3/ul (150-450); Red Blood Count 3.76 10^6/ul (4.0-5.4); Red Cell Distribution Width 13 % (10.5-15); White Blood Count 16.9 10^3/ul (3.5-10.8)
[2017-06-18 06:33] LABS: ABS Basophils 0 10^3/ul (0-0.2); ABS Eosinophils 0 10^3/ul (0-0.6); ABS Lymphocytes 1.3 10^3/ul (1.0-4.8); ABS Monocytes 1.6 10^3/ul (0-0.8); ABS Neutrophils 13.9 10^3/ul (1.5-7.7); ABS Nucleated RBC 0 10^3/ul; Eosinophil % 0.2 % (0-6); INR 1.42 (0.77-1.02); Lymphocyte % 7.6 % (25-47); Nucleated Red Blood Cells % 0
[2017-06-18] MEDS: Levofloxacin TAB* 750 MG PO SCH (08:26)
[2017-06-18] MEDS: NS 0.9% 1000 ML* 1,000 ML IV SCH ×2 (08:26→17:41)
--- NOTE | 2017-06-18 10:31 | PN ---
Subjective Date of Service: 06/18/17 Interval History: Pain R shoulder relieved by APAP/hydrocodone. Occ hemoptysis. Pain is pleuritic R chest. Not SOB. Objective Active Medications: Acetaminophen (Tylenol Tab*) 650 mg PO Q4H PRN PRN Reason: FEVER/PAIN Last Admin: 06/18/17 05:56 Dose: 650 mg Hydrocodone Bitart/Acetaminophen ([place] 5-325 Tab*) 1 tab PO Q4H PRN PRN Reason: PAIN Last Admin: 06/18/17 06:11 Dose: 1 tab Al Hydrox/Mg Hydrox/Simethicone (Maalox Plus*) 30 ml PO Q6H PRN PRN Reason: INDIGESTION Guaifenesin (Mucinex*) 600 mg PO BID [facility] Last Admin: 06/18/17 08:26 Dose: 600 mg Sodium Chloride (Ns 0.9% 1000 Ml*) 1,000 mls @ 125 mls/hr IV PER RATE [facility] Last Admin: 06/18/17 08:26 Dose: 125 mls/hr Levofloxacin (Levaquin Tab*) 750 mg PO Q24H [facility] Last Admin: 06/18/17 08:26 Dose: 750 mg Ondansetron HCl (Zofran Inj*) 4 mg IV Q4H PRN PRN Reason: NAUSEA/VOMITING Vital Signs - 8 hr 06/18/17 06/18/17 06/18/17 03:20 06:11 07:19 Temperature 100.1 F 98.9 F Pulse Rate 96 85 Respiratory 24 20 16 Rate Blood Pressure 123/54 118/61 (mmHg) O2 Sat by Pulse 99 98 Oximetry Oxygen Devices in Use Now: None Appearance: Alert, partly up in bed. In good spirits. Looks comfortable. No cough during myr visit. Eyes: No Scleral Icterus Respiratory: Symmetrical Chest Expansion and Respiratory Effort, Clear to Auscultation, Clear to Percussion Cardiovascular: NL Sounds; No Murmurs; No JVD, RRR, No Edema, - Extremities: No Edema, No Clubbing, Cyanosis, - Skin: No Rash or Ulcers, No Nodules or Sclerosis, - Neurological: Alert and Oriented x 3, NL Sensation Result Diagrams: 06/19/17 06:24 06/17/17 19:56 Microbiology and Other Data: Microbiology 06/17/17 22:57 Gram Stain - Final Sputum Expectorated Assess/Plan/Problems-Billing Assessment: - Patient Problems (1) Pneumonia Status: Acute Code(s): J18.9 - PNEUMONIA, UNSPECIFIED ORGANISM SNOMED Code(s ): 584482253 Comment: Afebrile, steadily declining WBC. Clinicial course c/w satisfactory response to levofloxacin. No change in tx. (2) Influenza Status: Acute Code(s): J11.1 - FLU DUE TO UNIDENTIFIED INFLUENZA VIRUS W OTH RESP MANIFEST SNOMED Code(s): 5272277 Comment: Recently completed his oseltamivir course.
[2017-06-18] MEDS: Ondansetron INJ* 2 MG/ML VIAL IV PRN (20:07)
[2017-06-19] MEDS: NS 0.9% 1000 ML* 1,000 ML IV SCH (02:44)
[2017-06-19] MEDS: Ondansetron INJ* 2 MG/ML VIAL IV PRN (03:41)
[2017-06-19] MEDS ORDERED: guaiFENesin LIQ* 100 MG/5 ML UDC PO PRN (03:50)
[2017-06-19] MEDS ORDERED: guaiFENesin LIQ* 100 MG/5 ML UDC ONE (03:53)
[2017-06-19] MEDS: Acetaminophen TAB* 325 MG PO PRN (05:20)
[2017-06-19 06:35] LABS: ABS Basophils 0 10^3/ul (0-0.2); ABS Eosinophils 0 10^3/ul (0-0.6); ABS Lymphocytes 0.9 10^3/ul (1.0-4.8); ABS Monocytes 1.3 10^3/ul (0-0.8); ABS Neutrophils 10.4 10^3/ul (1.5-7.7); ABS Nucleated RBC 0 10^3/ul; Eosinophil % 0.2 % (0-6); Hematocrit 32 % (42-52); Hemoglobin 11.1 g/dl (14.0-18.0); Lymphocyte % 6.8 % (25-47); Mean Corpuscular HGB Conc 34 g/dl (31-36); Mean Corpuscular Hemoglobin 30 pg (27-31); Mean Corpuscular Volume 88 fL (80-94); Mean Platelet Volume 8.3 um3 (7.4-10.4); Nucleated Red Blood Cells % 0; Platelet Count 248 10^3/ul (150-450); Red Blood Count 3.68 10^6/ul (4.0-5.4); Red Cell Distribution Width 14 % (10.5-15); White Blood Count 12.6 10^3/ul (3.5-10.8)
[2017-06-19 06:42] LABS: INR 1.42 (0.77-1.02)
[2017-06-19 08:35] VITALS: BP 138/68
[2017-06-19] MEDS: guaiFENesin ER TAB 600 MG PO SCH (08:40)
[2017-06-19] MEDS: Levofloxacin TAB* 750 MG PO SCH (08:40)
[2017-06-19] MEDS ORDERED: Phytonadione Oral Solution* 5 MG/25 ML UDC PO ONE (08:43)
--- NOTE | 2017-06-19 20:44 | PN ---
"Progress Note - Progress Note Date of Service: 06/19/17 Note: Search Terms: lynnette cornejo, 1995 Search Date: 06/19/2017 08:43:46 PM The Drug Utilization Report below displays all of the controlled substance prescriptions, if any, that your patient has filled in the last twelve months. The information displayed on this report is compiled from pharmacy submissions to the Department, and accurately reflects the information as submitted by the pharmacies. This report was requested by: Stefan Barroso | Reference #: [id number] There are no results for the search terms that you entered."
--- NOTE | 2017-06-19 22:11 | DS ---
DISCHARGE SUMMARY: DATE OF ADMISSION: 06/17/17 DATE OF DISCHARGE: 06/19/17 HISTORY OF PRESENT ILLNESS: This 22-year-old man presented with hemoptysis; he was treated with oseltamivir for influenza about 2 weeks before this admission. He was seen on 06/16/17, diagnosed with pneumonia and started on levofloxacin 750 mg daily. His prescription bottle actually said b.i.d. He also had ondansetron ODT at home for his nausea. He continued to have hemoptysis and presented. Rest of the details of admission are in the dictated note. The patient was treated with levofloxacin here. He gradually improved, his nausea resolved, his hemoptysis and cough decreased, he maintained good oxygenation on room air. His temperature did not show any decline. In fact, was 103.3 on 06/18/17, although he continued clinically to do well. His white blood count steadily declined. On 06/16/17, it was 27.1 and, with measurement, it declined significantly. On the day of discharge, it was 12.6. Clinically, he was doing very well. His lung exam was clear. He may have had more of a bronchitic component. His INR on admission 06/17/17, was 1.61, it came down to 1.42 without any intervention. On the day of discharge, he was given a vitamin K 5 mg p.o. His appetite is improved. He was advised to get a CBC and an INR within a few days after discharge at the [facility]. FINAL DIAGNOSES: 1. Pneumonia. 2. Suspected vitamin K deficiency. 3. Skin disorder. DISCHARGE MEDICATIONS: 1. Acetaminophen 650 mg every 4 hours p.r.n. 2. Guaifenesin 10 mL 4 times a day. 3. Hydrocodone/acetaminophen 5/325 one every 4 hours p.r.n. 4. Levofloxacin 750 mg daily for 3 days following discharge. 5. Ondansetron ODT as prescribed. 6. Tretinoin 45 g topically as prescribed. [id number]/[facility] #: [id number] [facility]
== END 2017-06-19 10:03 | disposition home or self-care (01) ==
LOC: ED 17:51 → MED 22:28
PROVIDERS: ADMIT Pediatrics; ATTEND Internal Medicine
DX: J18.9 Pneumonia, unspecified organism (principal); R04.2 Hemoptysis; J11.1 Influenza due to unidentified influenza virus with other respiratory manifestations; L98.9 Disorder of the skin and subcutaneous tissue, unspecified
CPT/HCPCS: 36415; 71275; 80053; 85025; 85610; 85730; 86140; 87070; 87205; 96365; 96375; 96376; 99285; A9270-GY; G0378; J2405; J3370; Q9967

== ENCOUNTER 2017-06-24 15:28 | Inpatient (IN) | payer OTHER ==
[2017-06-24] MEDS ORDERED: NS 0.9% 1000 ML* 1,000 ML IV ONE ×3 (16:50→20:14)
[2017-06-24] MEDS ORDERED: Azithromycin IV(*) 500 MG in NS 0.9% 250 ML* 250 ML IVPB ONE (16:50)
[2017-06-24] MEDS ORDERED: cefTRIAXone(*) 1 GM in NS 0.9% 50 ML* 50 ML IVPB ONE (16:50)
[2017-06-24 17:25] LABS: Hematocrit 37 % (42-52); Hemoglobin 12.4 g/dl (14.0-18.0); Mean Corpuscular HGB Conc 34 g/dl (31-36); Mean Corpuscular Hemoglobin 30 pg (27-31); Mean Corpuscular Volume 89 fL (80-94); Mean Platelet Volume 7.3 um3 (7.4-10.4); Platelet Count 429 10^3/ul (150-450); Red Blood Count 4.12 10^6/ul (4.0-5.4); Red Cell Distribution Width 14 % (10.5-15); White Blood Count 20.4 10^3/ul (3.5-10.8)
[2017-06-24 17:36] LABS: INR 1.32 (0.77-1.02)
--- NOTE | 2017-06-24 17:42 | RAD ---
INDICATION: Cough. Pneumonia. Shortness of breath today. COMPARISON: June 17, 2017 CT and June 16, 2017 chest radiograph. TECHNIQUE: Dual energy PA and routine lateral views of the chest were obtained. REPORT: Worsening of consolidation at the RIGHT lung base and suggestion of interval enlargement of small to moderate dependent RIGHT pleural effusion. Given lucencies within the consolidated lung areas of inflammatory cavitation should be considered. Negative for pneumothorax. The LEFT lung and pleural space remain clear. The heart, pulmonary vasculature, and mediastinal contours are unremarkable. Unremarkable soft tissue contours and osseous structures. IMPRESSION: Interval worsening of RIGHT basilar airspace consolidation and enlargement of dependent RIGHT pleural effusion. Given lucencies within the consolidated lung areas of inflammatory cavitation should be considered.
[2017-06-24 17:53] LABS: ABS Basophils 0.1 10^3/ul (0-0.2); ABS Eosinophils 0.4 10^3/ul (0-0.6); ABS Lymphocytes 1.4 10^3/ul (1.0-4.8); ABS Monocytes 1.2 10^3/ul (0-0.8); ABS Neutrophils 17.3 10^3/ul (1.5-7.7); ABS Nucleated RBC 0 10^3/ul; Nucleated Red Blood Cells % 0.1
[2017-06-24] MEDS ORDERED: Ondansetron INJ* 2 MG/ML VIAL IV PRN (20:14)
[2017-06-24] MEDS ORDERED: Acetaminophen TAB* 325 MG PO PRN (20:14)
[2017-06-24] MEDS ORDERED: NS 0.9% 1000 ML* 1,000 ML IV SCH (20:15)
[2017-06-24 20:20] LABS: Urine Appearance Clear; Urine Blood Negative (Negative); Urine Color Yellow; Urine Ketones Trace (Negative); Urine Protein Negative (Negative); Urine Specific Gravity 1.015 (1.010-1.030); Urine Urobilinogen Negative (Negative)
[2017-06-24] MEDS ORDERED: Azithromycin IV(*) 500 MG in D5W 250 ML BAG* 250 ML IVPB SCH (21:00)
[2017-06-24] MEDS ORDERED: Vancomycin per Pharmacy* NOTE FOLLOW UP PRN (21:15)
--- NOTE | 2017-06-24 21:42 | ED ---
Hayden Avila Rebecca, scribed for Harrison Meza MD on 06/24/17 at 1633 . HPI Febrile Illness - HPI Summary HPI Summary: Pt is a 22 y/o M who presents to ED c/o cough and fever. He was given a Dx of PNA last week and admitted for 5 days. He took his last dose of Levaquin yesterday and went to [facility] this morning, as his symptoms were not completely resolved. Throughout the day, his cough and fever have both gradually worsened, with the cough becoming more productive. - History of Current Complaint Chief Complaint: EDFever Time Seen by Provider: 06/24/17 16:23 Hx Obtained From: Patient Onset/Duration: Still Present, Worse Since - yesterday Timing: Lasting Days - Worsened yesterday Current Severity: Mild Pain Intensity: 1 Pain Scale Used: 0-10 Numeric Associated Signs and Symptoms: Cough Related History: Similar Diagnosis as: - Dx PNA last week with 5 day admission - Additional Pertinent History Primary Care Physician: BRENDEN - Allergy/Home Medications Allergies/Adverse Reactions: Allergies Allergy/AdvReac Type Severity Reaction Status Date / Time No Known Allergies Allergy Verified 06/24/17 15:30 Home Medications: Home Medications guaiFENesin LIQ* [Robitussin*] 10 ml PO QID PRN 06/24/17 [History Confirmed 12/03] PMH/Surg Hx/FS Hx/Imm Hx Endocrine/Hematology History: Denies: Hx Diabetes Cardiovascular History: Denies: Hx Hypertension, Hx Pacemaker/ICD Respiratory History: Reports: Hx Seasonal Allergies Denies: Hx Chronic Obstructive Pulmonary Disease (COPD) Sensory History: Reports: Hx Contacts or Glasses Denies: Hx Deafness, Hx Hearing Aid Opthamlomology History: Reports: Hx Contacts or Glasses Psychiatric History: Denies: Hx Eating Disorder, Hx Panic Disorder, Hx of Violent Episodes Against Others - Surgical History Surgery Procedure, Year, and Place: EAR TUBES Infectious Disease History: No Infectious Disease History: Denies: Traveled Outside the [place] in Last 30 Days - Family History Known Family History: Positive: Other - mother has MS - Social History Alcohol Use: Occasionally Hx Substance Use: No Substance Use Type: Reports: None Substance Use Comment - Amount & Last Used: unknown Hx Tobacco Use: No Smoking Status (MU): Never Smoked Tobacco Review of Systems Positive: Fever Positive: Cough - productive All Other Systems Reviewed And Are Negative: Yes Physical Exam - Summary Physical Exam Summary: Appearance: The patient is well-nourished in no acute distress and in no acute pain. Skin: The skin is warm and dry and skin color reflects adequate perfusion. HEENT: The head is normocephalic and atraumatic. The pupils are equal and reactive. The conjunctivae are clear and without drainage. Nares are patent and without drainage. Mouth reveals moist mucous membranes and the throat is without erythema and exudate. The external ears are intact. The ear canals are patent and without drainage. The tympanic membranes are intact. Neck: the neck is supple with full range of motion and non-tender. There are no carotid bruits. There is no neck vein distension. Respiratory: Chest is non-tender. Wet, paroxysmal cough. Cardiovascular: Heart is regular rate and rhythm. There is no murmur or rub auscultated. There is no peripheral edema and pulses are symmetrical and equal. Musculoskeletal: There is no back tenderness noted. Extremities are non-tender with full range of motion. There is good capillary refill. There is no peripheral edema or calf tenderness elicited. Neurological: Patient is alert and oriented to person, place and time. The patient has symmetrical motor strength in all four extremities. Cranial nerves are grossly intact. Deep tendon reflexes are symmetrical and equal in all four extremities. Psychiatric: The patient has an appropriate affect and does not exhibit any anxiety or depression. Triage Information Reviewed: Yes Vital Signs On Initial Exam: Initial Vitals Temp Pulse Resp BP Pulse Ox 98.1 F 106 20 117/69 98 06/24/17 15:30 06/24/17 15:30 06/24/17 15:30 06/24/17 15:30 06/24/17 15:30 Vital Signs Reviewed: Yes Diagnostics - Vital Signs Vital Signs Temp Pulse Resp BP Pulse Ox 06/24/17 15:30 98.1 F 106 20 117/69 98 - Laboratory Lab Results: Lab Results 06/24/17 06/24/17 06/24/17 Range/Units 17:00 17:00 17:00 WBC 20.4 H (3.5-10.8) 10^3/ul RBC 4.12 (4.0-5.4) 10^6/ul Hgb 12.4 L (14.0-18.0) g/dl Hct 37 L (42-52) % MCV 89 (80-94) fL MCH 30 (27-31) pg MCHC 34 (31-36) g/dl RDW 14 (10.5-15) % Plt Count 429 (150-450) 10^3/ul MPV 7.3 L (7.4-10.4) um3 Neut % (Auto) 84.8 H (38-83) % Lymph % (Auto) 7.0 L (25-47) % Early % (Auto) 5.7 (0-7) % Eos % (Auto) 2.0 (0-6) % Baso % (Auto) 0.5 (0-2) % Absolute Neuts (auto) 17.3 H (1.5-7.7) 10^3/ul Absolute Lymphs (auto) 1.4 (1.0-4.8) 10^3/ul Absolute Monos (auto) 1.2 H (0-0.8) 10^3/ul Absolute Eos (auto) 0.4 (0-0.6) 10^3/ul Absolute Basos (auto) 0.1 (0-0.2) 10^3/ul Absolute Nucleated RBC 0 10^3/ul Nucleated RBC % 0.1 INR (Anticoag Therapy) 1.32 H (0.77-1.02) APTT 33.9 (26.0-36.3) seconds Sodium 134 L (139-145) mmol/L Potassium 4.1 (3.5-5.0) mmol/L Chloride 96 L (101-111) mmol/L Carbon Dioxide 27 (22-32) mmol/L Anion Gap 11 (2-11) mmol/L BUN 11 (6-24) mg/dL Creatinine 0.79 (0.67-1.17) mg/dL Est GFR ( Amer) 160.8 (>60) Est GFR (Non-Af Amer) 125.0 (>60) BUN/Creatinine Ratio 13.9 (8-20) Glucose 105 H (70-100) mg/dL Lactic Acid (0.5-2.0) mmol/L Calcium 9.4 (8.6-10.3) mg/dL Total Bilirubin 0.60 (0.2-1.0) mg/dL AST 17 (13-39) U/L ALT 19 (7-52) U/L Alkaline Phosphatase 72 (34-104) U/L Total Creatine Kinase 96 (10-223) U/L Troponin I 0.07 H* (<0.04) ng/mL C-Reactive Protein 194.27 H (< 5.00) mg/L Total Protein 8.5 (6.4-8.9) g/dL Albumin 3.5 (3.2-5.2) g/dL Globulin 5.0 H (2-4) g/dL Albumin/Globulin Ratio 0.7 L (1-3) Urine Color Urine Appearance Urine pH (5-9) Ur Specific [place] (1.010-1.030) Urine Protein (Negative) Urine Ketones (Negative) Urine Blood (Negative) Urine Nitrate (Negative) Urine Bilirubin (Negative) Urine Urobilinogen (Negative) Ur Leukocyte Esterase (Negative) Urine Glucose (Negative) 06/24/17 06/24/17 Range/Units 17:00 19:49 WBC (3.5-10.8) 10^3/ul RBC (4.0-5.4) 10^6/ul Hgb (14.0-18.0) g/dl Hct (42-52) % MCV (80-94) fL MCH (27-31) pg MCHC (31-36) g/dl RDW (10.5-15) % Plt Count (150-450) 10^3/ul MPV (7.4-10.4) um3 Neut % (Auto) (38-83) % Lymph % (Auto) (25-47) % Early % (Auto) (0-7) % Eos % (Auto) (0-6) % Baso % (Auto) (0-2) % Absolute Neuts (auto) (1.5-7.7) 10^3/ul Absolute Lymphs (auto) (1.0-4.8) 10^3/ul Absolute Monos (auto) (0-0.8) 10^3/ul Absolute Eos (auto) (0-0.6) 10^3/ul Absolute Basos (auto) (0-0.2) 10^3/ul Absolute Nucleated RBC 10^3/ul Nucleated RBC % INR (Anticoag Therapy) (0.77-1.02) APTT (26.0-36.3) seconds Sodium (139-145) mmol/L Potassium (3.5-5.0) mmol/L Chloride (101-111) mmol/L Carbon Dioxide (22-32) mmol/L Anion Gap (2-11) mmol/L BUN (6-24) mg/dL Creatinine (0.67-1.17) mg/dL Est GFR ( Amer) (>60) Est GFR (Non-Af Amer) (>60) BUN/Creatinine Ratio (8-20) Glucose (70-100) mg/dL Lactic Acid 1.2 (0.5-2.0) mmol/L Calcium (8.6-10.3) mg/dL Total Bilirubin (0.2-1.0) mg/dL AST (13-39) U/L ALT (7-52) U/L Alkaline Phosphatase (34-104) U/L Total Creatine Kinase (10-223) U/L Troponin I (<0.04) ng/mL C-Reactive Protein (< 5.00) mg/L Total Protein (6.4-8.9) g/dL Albumin (3.2-5.2) g/dL Globulin (2-4) g/dL Albumin/Globulin Ratio (1-3) Urine Color Yellow Urine Appearance Clear Urine pH 7.0 (5-9) Ur Specific [place] 1.015 (1.010-1.030) Urine Protein Negative (Negative) Urine Ketones Trace A (Negative) Urine Blood Negative (Negative) Urine Nitrate Negative (Negative) Urine Bilirubin Negative (Negative) Urine Urobilinogen Negative (Negative) Ur Leukocyte Esterase Negative (Negative) Urine Glucose Negative (Negative) Result Diagrams: 06/24/17 17:00 06/24/17 17:00 Lab Statement: Any lab studies that have been ordered have been reviewed, and results considered in the medical decision making process. - Radiology CXR Xray Interpretation: Positive (See Comments) - Interval worsening of RIGHT basilar airspace consolidation and enlargement of dependent RIGHT pleural effusion. Given lucencies within the consolidated lung areas of inflammatory cavitation should be considered. ED physician reviewed this radiology report. Radiology Interpretation Completed By: Radiologist Course/Dx - Course Course Of Treatment: Mr. Del Cid finished his PO Levaquin yesterday and now is feeling worse. He went to [facility] and they found his WBC's to be quite elevated again and sent him here. His CXR was also worse and I asked the hospitalist service to evaluate him for admission. - Diagnoses Provider Diagnoses: Pneumonia - Provider Notifications Discussed Care Of Patient With: Adalberto Xiao Time Discussed With Above Provider: 19:18 Instructed by Provider To: Other - Accepts pt for admission. Discharge - Sign-Out/Discharge Documenting (check all that apply): Discharge - Admitted - Discharge Plan Condition: Stable Disposition: ADMITTED TO [facility] - Billing Disposition and Condition Condition: STABLE Disposition: [facility] The documentation as recorded by the Hayden thompson Rebecca accurately reflects the service I personally performed and the decisions made by me, Harrison Meza MD.
[2017-06-24] MEDS ORDERED: Vancomycin(*) 1,500 MG in NS 0.9% 250 ML* 250 ML IVPB ONE (23:00)
--- NOTE | 2017-06-24 23:27 | HP ---
CC: [facility]; Dr. Salgado; Dr. Ortega; Dr. Magana * HISTORY AND PHYSICAL: DATE OF ADMISSION: 06/24/17 PRIMARY CARE PROVIDER: [facility]. ATTENDING PHYSICIAN WHILE IN THE HOSPITAL: Brennon Gates MD * (report dictated by Bryant Cerda NP). CHIEF COMPLAINT: 1. Cough. 2. Not feeling well. HISTORY OF PRESENT ILLNESS: Mr. Del Cid is a 22-year-old male patient, previously healthy. Says about 3 to 4 weeks ago, he was diagnosed with having the flu, he took Tamiflu. He states he felt a little bit better afterwards, but he just did not get 100% better. Afterwards, he still had a cough. He came into the ER after being referred from Urgent Care on 06/16/17, was evaluated down there and was sent home on p.o. Levaquin. He came right back on 06/17/17 to the ER. He was having some hemoptysis. Clinically, he said he was feeling better after Levaquin. He was here for 2 nights and was discharged later last week on 06/19/17. He was still spiking fevers Saturday, , and Saturday. He felt better by Saturday, felt better Saturday and yesterday. He slept both nights that was the first time he gotten complete sleep in some time. He said that he still continued to have a cough. He still felt short of breath with exertion. He was concerned though he woke up this morning, he says he still just did not feel 100%, so he went to [facility] and was evaluated there. It was noted that his white count was still 21,000. In addition to this, it was also noted that his chest x-ray appeared to be worse. He was then referred to the hospital. He denies having any fever, chills over the last 24 hours. He does admit to having a cough. He denies having any abdominal pain. He denied any chest pain. He denied having any vomiting or diarrhea. No arthralgias. He has no recent travel in the last couple of months. He came in and was evaluated in the ED. There was concern because of a worsening pneumonia. His troponin was mildly elevated. Because of these findings, we were asked to evaluate for admission. PAST MEDICAL HISTORY: Significant for pneumonia only. PAST SURGICAL HISTORY: He has had eustachian tubes placed. HOME MEDICATIONS: Include: 1. Zofran 4 mg every 6 hours as needed. 2. Tylenol 650 mg every 4 hours as needed. 3. Robitussin 10 cc p.o. 4 times a day as needed. ALLERGIES TO MEDICATIONS: Include no known drug allergies. FAMILY HISTORY: Both his parents are healthy to his knowledge. SOCIAL HISTORY: He does not smoke. He is a sophomore at [employer]. He does not drink alcohol. He says if he does, it is occasionally. He denies having any recreational IV drug use. REVIEW OF SYSTEMS: There is no documented fever. He denied having any significant weight change. He denies having any double vision. There is no ear discharge. He denied having any rhinorrhea or sore throat. He does admit to having a cough. He denied having any abdominal pain. There was no nausea, no vomiting, no dysuria. There was no frequency. No seizure. There was no loss of consciousness, no pruritus and no skin ulceration. Review of 14 systems completed, all others negative. PHYSICAL EXAMINATION GENERAL: At this time, Mr. Del Cid is a 22-year-old male patient, appears to be well- nourished, well-developed. He is sitting in the ED stretcher. He does not appear to be in any acute distress. VITAL SIGNS: Blood pressure 137/67, pulse 109, respirations were 24, O2 sat 98% , temperature 98.1. HEENT: Head: Atraumatic, normocephalic. Eyes: EOMs intact. Sclerae are anicteric, not pale. Throat: Oral mucosa appears to be dry. No oropharyngeal erythema. NECK: Supple. LUNGS: Clear to auscultation with the exception in the right base, there were diminished equal diaphragmatic expansion. HEART: Sounds S1, S2. Regular rate and rhythm. He is tachycardic. ABDOMEN: Soft, flat, nontender. Bowel sounds present. EXTREMITIES: Pulses 2+ throughout. He is moving all 4 extremities with 5/5 strength. NEUROLOGIC: The patient is awake. He is alert. He is oriented x3. Analytical Statistician were equal. Tongue was midline. He had no gross focal deficits. SKIN: Grossly intact. DIAGNOSTIC STUDIES/LAB DATA: WBC of 20.4, RBC of 4.12, hemoglobin of 12.4, hematocrit 37, platelet count 429. His INR was 1.32. PTT was 33.9. Sodium was 134, potassium 4.1, chloride of 96, bicarb of 27, BUN 11, creatinine 0.79, glucose 105, lactate 1.2, calcium 9.4. Total bilirubin 0.6, AST 17, ALT 19, alk phos 72. Troponin 0.07, repeat was 0.01. CRP 194. Albumin of 3.5. Urine showed trace ketones. He did have a chest x-ray obtained today, which revealed interval worsening of right basilar airspace consolidation and enlargement of the dependent right pleural effusion. Given lucencies within the consolidated lung areas, inflammatory cavitation should be considered. He had an EKG obtained today showing sinus tachycardia. He had no ST elevations or T-wave inversions noted. No previous EKGs for comparison. Old medical records were reviewed. ASSESSMENT AND PLAN: Mr. Del Cid is a 22-year-old male patient coming into the emergency department today with complaints of worsening cough, not feeling well , now found to have worsening pneumonia and elevated white count. He will be admitted under inpatient status for: 1. Sepsis secondary to pneumonia. He has got the white count. He is little tachypneic. In addition to this, his heart rate is elevated. He did get 2 L of fluid in the ED. I will give him another liter of fluid now. I am going to broaden his antibiotics with cefepime, vanco, and azithromycin. We will get Legionella antigen, strep pneumo antigen. Flu swab was negative. We will go ahead and check sputum cultures if we are able to obtain them and I have also consulted with Dr. Salgado and Dr. Magana to evaluate the patient for possible thoracentesis as he does have parapneumonic effusion, which may need to be drained. I have also checked in for HIV as well. 2. Elevated troponin. This is probably secondary to demand ischemia. It could be a laboratory error as it did drop down significantly just in 3 hours. However, I do think we should cycle one more troponin. Cardiology consult was placed. In addition to this, I will get an echo to make sure there are no structural defects of the heart. I suspect the tachycardia is related to underlying infection, which we are treating. 3. DVT prophylaxis. He will be placed on SCDs. 4. Code status. Full code. 5. Fluids, electrolytes, and nutrition. He can have a regular diet. TIME SPENT: Time spent on the admission was 60 minutes; greater than half the time spent [id number] with the patient obtaining my history and physical; the other half the time was spent going over the plan of care with the patient and implementing the plan of care. I did discuss the plan of care with my attending, Dr. Gates; he is in agreement. BRYANT CERDA, TERELL [id number]/[facility] #: [id number] KENDRICK
[2017-06-24] MEDS: Cefepime 2 GM in Dextrose(*) 2 GM/50 ML BAG IV SCH (23:31)
[2017-06-25 05:55] LABS: Hematocrit 33 % (42-52); Hemoglobin 11.1 g/dl (14.0-18.0); Mean Corpuscular HGB Conc 34 g/dl (31-36); Mean Corpuscular Hemoglobin 30 pg (27-31); Mean Corpuscular Volume 90 fL (80-94); Mean Platelet Volume 7.3 um3 (7.4-10.4); Platelet Count 327 10^3/ul (150-450); Red Blood Count 3.64 10^6/ul (4.0-5.4); Red Cell Distribution Width 14 % (10.5-15); White Blood Count 16.4 10^3/ul (3.5-10.8)
[2017-06-25 05:56] LABS: ABS Basophils 0.1 10^3/ul (0-0.2); ABS Eosinophils 0.4 10^3/ul (0-0.6); ABS Lymphocytes 1.6 10^3/ul (1.0-4.8); ABS Monocytes 1.2 10^3/ul (0-0.8); ABS Neutrophils 13.1 10^3/ul (1.5-7.7); ABS Nucleated RBC 0 10^3/ul; Eosinophil % 2.5 % (0-6); Lymphocyte % 9.8 % (25-47); Nucleated Red Blood Cells % 0
[2017-06-25 06:08] LABS: INR 1.29 (0.77-1.02)
[2017-06-25] MEDS: Vancomycin(*) 1,000 MG in NS 0.9% 250 ML* 250 ML IVPB SCH ×2 (08:40→18:17)
--- NOTE | 2017-06-25 08:49 | ECHO ---
Patient: DEER BECERRA [facility] Rec#: [id number] : 1995 Date: 06/25/2017 Age: 22y Height: 187.96 cm / 74.0 in Weight: 77.11 kg / 170.0 lbs Sex: M BSA: 2.03 Room#: 441 Admit Date#: 06/24/2017 Type: Inpatient Referring: Bryant Cerda NP Reading: Eduard Hines MD Patient Scheduling Manager: Jordana Lewis RD Transthoracic Echocardiogram Indication: Elevated Trop BP: 122/68 HR: 77 Rhythm: NSR Findings History: Flu dx. 3-4 weeks ago with rx.,right base PNA. Technical Comments: The study quality is good. Completed at 0823. Left Ventricle: The left ventricular chamber size is normal. Mild to moderate concentric left ventricular hypertrophy is observed. There is a focal wall motion abnormality present.There is dyssynchronous motion to the distal interventricular septum. Left ventricular systolic function is at the lower limits of normal. The estimated ejection fraction is 50-55%. Visually estimated LVEF is 50 %. Normal left ventricular diastolic filling is observed. Left Atrium: The left atrial chamber size is normal. Right Ventricle: The right ventricle is mildly dilated. The right ventricular global systolic function is mildly reduced. Right Atrium: The right atrial cavity size is normal. Aortic Valve: The aortic valve is trileaflet. There is no evidence of aortic regurgitation. There is no evidence of aortic stenosis. Mitral Valve: The mitral valve leaflets appear normal. There is no evidence of mitral regurgitation. There is no evidence of mitral stenosis. Tricuspid Valve: The tricuspid valve leaflets are normal. There is a physiologic tricuspid regurgitation. Unable to estimate the right ventricular systolic pressure. There is no tricuspid stenosis. Pulmonic Valve: The pulmonic valve appears normal. There is mild pulmonic regurgitation. There is no pulmonic stenosis. Pericardium: The pericardium appears normal. Aorta: There is no dilatation of the ascending aorta. There is no dilatation of the aortic arch. There is no dilation of the aortic root. Pulmonary Artery: The main pulmonary artery appears normal. Venous: The inferior vena cava appears normal in size. There is a greater than 50% respiratory change in the inferior vena cava dimension. Conclusions Mild to moderate concentric left ventricular hypertrophy is observed. There is a focal wall motion abnormality present.There is dyssynchronous motion to the distal interventricular septum. Left ventricular systolic function is at the lower limits of normal. Visually estimated LVEF is 50 %. The right ventricle is mildly dilated. The right ventricular global systolic function is mildly reduced. No significant valvular disease: There is mild pulmonic regurgitation. There is a physiologic tricuspid regurgitation. Measurements Name Value Normal Range RVIDd (AP) 2D 3.4 cm (0.9 - 2.6) RVDdMajor (2D) 4.8 cm (2.2 - 4.4) RAd ISD 4CH 5.4 cm (3.4 - 4.9) RA (A4C)W 3.8 cm (2.9 - 4.6) IVSd (2D) 1.3 cm (0.6 - 1) LVPWd (2D) 1.4 cm (0.6 - 1) LVIDd (2D) 4.6 cm (3.6 - 5.4) LVIDs (2D) 3.5 cm - LV FS (2D) 25 % (25 - 45) Aortic Annulus 2.3 cm (1.4 - 2.6) Ao root diameter (2D) 3.4 cm (2.1 - 3.5) Ascending Ao 2.9 cm (2.1 - 3.4) Aortic arch 2.6 cm (1.8 - 3.4) Descending Ao 1 cm - LA dimension (AP) 2D 3 cm (2.3 - 3.8) LAd ISD 4CH 4.5 cm (2.9 - 5.3) LA ISD 4CH W 3.6 cm (2.5 - 4.5) Name Value Normal Range LA ESV SP 4CH (A/L) 53 ml - LA ESV SP 2CH (A/L) 65 ml - LA ESV BP (A/L) 70 ml - LA ESV BP (A/L) index 34.5 ml/m2 - LA ESV SP 4CH (MOD) 47 ml - LA ESV SP 2CH (MOD) 59 ml - Name Value Normal Range MV E-wave Vmax 1.1 m/sec - MV deceleration time 178 msec - MV A-wave Vmax 0.7 m/sec - MV E:A ratio 1.54 ratio - LV septal e' Vmax 0.11 m/sec - LV lateral e' Vmax 0.24 m/sec - LV E:e' septal ratio 10 ratio - LV E:e' lateral ratio 4.58 ratio - Name Value Normal Range AV Vmax 1.5 m/sec - AV VTI 29.5 cm - AV peak gradient 9.29 mmHg - AV mean gradient 3.74 mmHg - LVOT Vmax 1.4 m/sec - LVOT VTI 22.1 cm - LVOT peak gradient 7.44 mmHg - LVOT mean gradient 3.39 mmHg - Name Value Normal Range IVC diameter 1.8 cm - Name Value Normal Range PV Vmax 0.8 m/sec - PV peak gradient 2.45 mmHg -
--- NOTE | 2017-06-25 09:04 | PN ---
Subjective Date of Service: 06/25/17 Interval History: Non-productive cough. No chills or sweats. Mild R chest pain. Not SOB at rest. No new c/o. Objective Active Medications: Acetaminophen (Tylenol Tab*) 650 mg PO Q4H PRN PRN Reason: FEVER/PAIN Last Admin: 06/24/17 22:25 Dose: 650 mg Cefepime HCl (Maxipime 2 Gm In Dextrose Duplex (*)) 2 gm in 50 mls @ 100 mls/ hr IV Q12H [facility] Last Admin: 06/24/17 23:31 Dose: 100 mls/hr Azithromycin 500 mg/ Sodium (Chloride) 250 mls @ 250 mls/hr IVPB Q24H [facility] Vancomycin HCl 1,000 mg/ (Sodium Chloride) 250 mls @ 166.667 mls/hr IVPB Q8H [facility] Last Admin: 06/25/17 08:40 Dose: 166.667 mls/hr Ondansetron HCl (Zofran Inj*) 4 mg IV Q6H PRN PRN Reason: NAUSEA Pharmacy Consult (Vancomycin Per Pharmacy*) 1 note FOLLOW UP . PRN PRN Reason: PER PROTOCOL Pharmacy Profile Note (Vancomycin Trough Check) 1 note FOLLOW UP 0830 ONE Stop: 06/26/17 08:31 Vital Signs - 8 hr 06/25/17 06/25/17 06/25/17 03:27 07:12 08:00 Temperature 98.9 F 99.6 F Pulse Rate 89 92 Respiratory 22 18 Rate Blood Pressure 122/68 129/70 (mmHg) O2 Sat by Pulse 99 100 99 Oximetry Oxygen Devices in Use Now: None Appearance: Alert, sitting up in bed. In good spirits, lookc comfrotable. No cough during my visit. Eyes: No Scleral Icterus Neck: NL Appearance and Movements; NL JVP, No Thyroid Enlargement, Masses Respiratory: Symmetrical Chest Expansion and Respiratory Effort, Clear to Percussion - sl diminshed BS R base Cardiovascular: NL Sounds; No Murmurs; No JVD, RRR, No Edema, - Extremities: No Edema, No Clubbing, Cyanosis, - Skin: No Rash or Ulcers, No Nodules or Sclerosis, - Neurological: Alert and Oriented x 3, NL Sensation Result Diagrams: 06/26/17 06:16 06/26/17 06:16 Additional Lab and Data: Lab Results 06/24/17 06/24/17 06/24/17 Range/Units 17:00 17:00 17:00 WBC 20.4 H (3.5-10.8) 10^3/ul RBC 4.12 (4.0-5.4) 10^6/ul Hgb 12.4 L (14.0-18.0) g/dl Hct 37 L (42-52) % MCV 89 (80-94) fL MCH 30 (27-31) pg MCHC 34 (31-36) g/dl RDW 14 (10.5-15) % Plt Count 429 (150-450) 10^3/ul MPV 7.3 L (7.4-10.4) um3 Neut % (Auto) 84.8 H (38-83) % Lymph % (Auto) 7.0 L (25-47) % Stephens % (Auto) 5.7 (0-7) % Eos % (Auto) 2.0 (0-6) % Baso % (Auto) 0.5 (0-2) % Absolute Neuts (auto) 17.3 H (1.5-7.7) 10^3/ul Absolute Lymphs (auto) 1.4 (1.0-4.8) 10^3/ul Absolute Monos (auto) 1.2 H (0-0.8) 10^3/ul Absolute Eos (auto) 0.4 (0-0.6) 10^3/ul Absolute Basos (auto) 0.1 (0-0.2) 10^3/ul Absolute Nucleated RBC 0 10^3/ul Nucleated RBC % 0.1 INR (Anticoag Therapy) 1.32 H (0.77-1.02) APTT 33.9 (26.0-36.3) seconds Sodium 134 L (139-145) mmol/L Potassium 4.1 (3.5-5.0) mmol/L Chloride 96 L (101-111) mmol/L Carbon Dioxide 27 (22-32) mmol/L Anion Gap 11 (2-11) mmol/L BUN 11 (6-24) mg/dL Creatinine 0.79 (0.67-1.17) mg/dL Est GFR ( Amer) 160.8 (>60) Est GFR (Non-Af Amer) 125.0 (>60) BUN/Creatinine Ratio 13.9 (8-20) Glucose 105 H (70-100) mg/dL Lactic Acid (0.5-2.0) mmol/L Calcium 9.4 (8.6-10.3) mg/dL Total Bilirubin 0.60 (0.2-1.0) mg/dL AST 17 (13-39) U/L ALT 19 (7-52) U/L Alkaline Phosphatase 72 (34-104) U/L Total Creatine Kinase 96 (10-223) U/L Troponin I 0.07 H* (<0.04) ng/mL C-Reactive Protein 194.27 H (< 5.00) mg/L Total Protein 8.5 (6.4-8.9) g/dL Albumin 3.5 (3.2-5.2) g/dL Globulin 5.0 H (2-4) g/dL Albumin/Globulin Ratio 0.7 L (1-3) Urine Color Urine Appearance Urine pH (5-9) Ur Specific Coffey (1.010-1.030) Urine Protein (Negative) Urine Ketones (Negative) Urine Blood (Negative) Urine Nitrate (Negative) Urine Bilirubin (Negative) Urine Urobilinogen (Negative) Ur Leukocyte Esterase (Negative) Urine Glucose (Negative) 06/24/17 06/24/17 Range/Units 17:00 19:49 WBC (3.5-10.8) 10^3/ul RBC (4.0-5.4) 10^6/ul Hgb (14.0-18.0) g/dl Hct (42-52) % MCV (80-94) fL MCH (27-31) pg MCHC (31-36) g/dl RDW (10.5-15) % Plt Count (150-450) 10^3/ul MPV (7.4-10.4) um3 Neut % (Auto) (38-83) % Lymph % (Auto) (25-47) % Stephens % (Auto) (0-7) % Eos % (Auto) (0-6) % Baso % (Auto) (0-2) % Absolute Neuts (auto) (1.5-7.7) 10^3/ul Absolute Lymphs (auto) (1.0-4.8) 10^3/ul Absolute Monos (auto) (0-0.8) 10^3/ul Absolute Eos (auto) (0-0.6) 10^3/ul Absolute Basos (auto) (0-0.2) 10^3/ul Absolute Nucleated RBC 10^3/ul Nucleated RBC % INR (Anticoag Therapy) (0.77-1.02) APTT (26.0-36.3) seconds Sodium (139-145) mmol/L Potassium (3.5-5.0) mmol/L Chloride (101-111) mmol/L Carbon Dioxide (22-32) mmol/L Anion Gap (2-11) mmol/L BUN (6-24) mg/dL Creatinine (0.67-1.17) mg/dL Est GFR ( Amer) (>60) Est GFR (Non-Af Amer) (>60) BUN/Creatinine Ratio (8-20) Glucose (70-100) mg/dL Lactic Acid 1.2 (0.5-2.0) mmol/L Calcium (8.6-10.3) mg/dL Total Bilirubin (0.2-1.0) mg/dL AST (13-39) U/L ALT (7-52) U/L Alkaline Phosphatase (34-104) U/L Total Creatine Kinase (10-223) U/L Troponin I (<0.04) ng/mL C-Reactive Protein (< 5.00) mg/L Total Protein (6.4-8.9) g/dL Albumin (3.2-5.2) g/dL Globulin (2-4) g/dL Albumin/Globulin Ratio (1-3) Urine Color Yellow Urine Appearance Clear Urine pH 7.0 (5-9) Ur Specific Coffey 1.015 (1.010-1.030) Urine Protein Negative (Negative) Urine Ketones Trace A (Negative) Urine Blood Negative (Negative) Urine Nitrate Negative (Negative) Urine Bilirubin Negative (Negative) Urine Urobilinogen Negative (Negative) Ur Leukocyte Esterase Negative (Negative) Urine Glucose Negative (Negative) Microbiology and Other Data: Microbiology 06/25/17 01:17 Gram Stain - Final Sputum 06/24/17 22:25 Legionella Urinary Antigen - Final Urine Negative Legionella Antigen Streptococcus pneumoniae Ag Screen - Final Negative S. pneumo Antigen Assess/Plan/Problems-Billing Assessment: - Patient Problems (1) Pneumonia Current Visit: No Status: Acute Code(s): J18.9 - PNEUMONIA, UNSPECIFIED ORGANISM SNOMED Code(s): 015376121 Comment: He completed 7 days of levofloxacin 750 mg daily. Discuss[address] with Dr. Salgado. Thoacentesis of about [address] Schaffer. 3+ neutrophils , no bacateria seen. Possible small lung abcesses. 4 weeks of ceftraxone and vancomycin planned. PICC line requested.
[2017-06-25] MEDS ORDERED: Phytonadione Oral Solution* 5 MG/25 ML UDC PO ONE (09:30)
--- NOTE | 2017-06-25 10:23 | RAD ---
HISTORY: Effusion, rule out abscess COMPARISONS: June 17, 2017 TECHNIQUE: Multiple contiguous axial CT scans of the chest were obtained without intravenous contrast. Coronal and sagittal multiplanar reformations are also submitted for review. FINDINGS: The study is limited by the lack of intravenous contrast. This limits evaluation of the solid organs and vasculature. NECK AND THYROID: The lower neck and thyroid are unremarkable. CHEST WALL: There is no lower cervical, axillary, or supraclavicular lymphadenopathy by size criteria. HEART AND PERICARDIUM: The heart is unremarkable. AORTA AND PULMONARY VASCULATURE: The aorta and pulmonary vasculature are normal. MEDIASTINUM: There is no mediastinal lymphadenopathy by size criteria. BHAVANI: There is no hilar lymphadenopathy by size criteria. AIRWAY AND ESOPHAGUS: The airway is unremarkable, without endobronchial filling defect. The esophagus is grossly normal. LUNG PARENCHYMA: There is consolidation of the basal segments of the right lower lobe. There is a more focal area of mixed gas and fluid density within the medial basal segment measuring approximately 4.5 x 3.5 x 3.5 cm in size. There is patchy and less opacification of the superior segment of the right lower lobe. PLEURA: There is a small right pleural effusion. UPPER ABDOMEN: The upper abdomen is unremarkable. BONES AND SOFT TISSUES: No bone or soft tissue abnormalities are noted. OTHER: None. IMPRESSION: 1. RIGHT LOWER LOBE CONSOLIDATION WITH A MORE FOCAL AREA OF MIXED GAS AND FLUID DENSITY DENSITY WITHIN THE MEDIAL BASAL SEGMENT MEASURING UP TO 4.5 CM IN SIZE, CONCERNING FOR PULMONARY PARENCHYMAL ABSCESS IN THE CORRECT CLINICAL SETTING. 2. SMALL RIGHT PLEURAL EFFUSION.
[2017-06-25] MEDS ORDERED: fentaNYL* 50 MCG/ML 2 ML VIAL (100 MCG VIAL) ONE (11:15)
[2017-06-25] MEDS: Cefepime 2 GM in Dextrose(*) 2 GM/50 ML BAG IV SCH (12:49)
--- NOTE | 2017-06-25 13:42 | RAD ---
CPT II Codes: 6100F INDICATION: Small right-sided pleural effusion in the presence of lobar pneumonia COMPARISON: Same day CT of the chest PROCEDURE NOTE AND IMAGING FINDINGS: The benefits of the and risks of procedure explained to the patient. The patient consented of the exam. The patient was brought to the ultrasound suite and multiple images of the right hemithorax were obtained. There was a very small minimally echogenic pleural effusion present. The site was marked. A formal time out was performed before beginning the procedure. The patient was prepped and draped in the usual sterile fashion. The patient?s posterior chest wall was anesthetized with 1% lidocaine. A small skin jenna was made to allow placement of the thoracentesis needle and catheter. Approximately 150 mL of blood-tinged serous fluid was aspirated. The samples were sent to the laboratory for culture and sensitivity as requested. The patient tolerated the procedure without incident. IMPRESSION: Uncomplicated thoracentesis as described in the body of the report.
--- NOTE | 2017-06-25 13:44 | CONS ---
CC: [facility]; Dr. Salgado CARDIOLOGY CONSULTATION: DATE OF CONSULT: 06/25/17 INDICATION FOR CONSULT: Chest pain, abnormal troponin level. HISTORY OF PRESENT ILLNESS: The patient is a 22-year-old male, who is essentially healthy, who came to the emergency room because of cough and feeling poorly. He was diagnosed with pneumonia. In the emergency room, they did a blood test, which showed troponin level of 0.07, which is minimally abnorm al. The second troponin was 0.02, which is normal. In speaking with the patient, he denies any ricardo yared chest pain. He denies any palpitations. He denies any lightheadedness, dizziness, or syncope. He has his obvious shortness of breath from his pneumonia, but no other significant cardiac symptoms . The patient did get an echocardiogram here at [facility] today, which showed normal LV siz e with systolic function ejection fraction of 55%. He has got some distal septal asynchrony but no e vidence of hypokinesis. The remainder of his echo is unremarkable. No valve abnormalities. PAST MEDICAL HISTORY: Unremarkable. PAST SURGICAL HISTORY: Ear surgery as a kid. OUTPATIENT MEDICATIONS: None. ALLERGIES: None. FAMILY HISTORY: Both parents are alive and healthy. SOCIAL HISTORY: He denies tobacco use. He is a sophomore at [employer]. No alcohol use. PHYSICAL EXAM: Height is 6 feet 2 inches, weight is 172 pounds. Temperature 99.8, heart rate is 102 , blood pressure 117/60, oxygenation 97% on room air, respiratory rate is 18. HEENT: Sclerae anicte shannan. Oropharynx is pink without erythema. Carotids are 2+ without bruits. JVD is normal. Thyroid i s normal. Cardiac Exam: S1 and S2 without any murmurs, rubs, or gallops. Lungs: Clear to auscultat ion bilaterally. There is no dullness to percussion. Abdomen: Soft, nontender, and nondistended wi th normoactive bowel sounds. Extremities: Show no edema. He has 2+ pulses throughout. The patient is awake, alert, and oriented. He moves all 4 extremities equally. DIAGNOSTIC STUDIES/LAB DATA: White count 20,000, hemoglobin 12, hematocrit 37, and platelet count 42 9. Chemistry is within normal limits. Troponin levels as described above. EKG shows normal sinus rhythm with nonspecific T-wave flattening. Echocardiogram as described above. IMPRESSION AND PLAN: This is a 22-year-old male, who is admitted to the hospital with severe pneumon ia. He has a minimally elevated troponin level, likely secondary to a very mild myocarditis presenta tion. His echocardiogram shows essentially normal left ventricular function. No areas of significan t hypokinesis. No valvular abnormalities. For now my recommendation is to continue his treatment per hospitalist for his pneumonia. I do not t hink any specific treatment is necessary for his minimally elevated troponin level. The patient does not require cardiology followup. [id number] #: [id number]
[2017-06-25] MEDS: Benzonatate CAP* 100 MG PO SCH ×2 (14:27→23:04)
[2017-06-25] MEDS: cefTRIAXone(*) 1 GM in NS 0.9% 50 ML* 50 ML IVPB SCH (17:44)
[2017-06-25] MEDS ORDERED: Azithromycin IV(*) 500 MG in NS 0.9% 250 ML* 250 ML IVPB SCH (18:00)
--- NOTE | 2017-06-25 19:55 | CONS ---
CONSULTATION REPORT: DATE OF CONSULT: 06/25/17 REQUESTING PHYSICIAN: Dr. Barroso. CONSULTING SERVICE: Infectious Disease. REASON FOR CONSULT: Lung abscess. IMPRESSION: Lung abscess and complex parapneumonic effusion as a complication of community-acquired pneumonia subsequent to influenza. Usual organisms are staphylococcus and streptococcus. RECOMMENDATION: Continue vancomycin, stop azithromycin. We will change cefepime to ceftriaxone. He had a pleural fluid analysis from thoracentesis today. The Gram stain shows 4+ polys, there are no organisms. Cultures are often negative in this setting. I discussed with him the need for approximately 4 weeks of IV antibiotics, given the abscess and pleural space infection. Based on the current CT scan, it does not look like there is enough fluid or that is loculated to require a chest tube. HISTORY OF PRESENT ILLNESS: This is a 22-year-old man, who had influenza early in the winter, a couple of weeks later developed cough, sputum production, found to have a right-sided infiltrate, treated with Levaquin as an outpatient and inpatient for a couple of days. While he was taking it, his fevers went from high to low- grade fevers, his white count improved from 27,000 down to 12, 000. He was discharged and finished Levaquin course. He never really got back to his usual self and then he stopped the antibiotics and had worsening fevers, chills, sweats, and right-sided chest pain. He was seen at [facility] and had an x-ray that showed progression of the infiltrate and his white count was back up. They directed him here. He was admitted yesterday with white count of 21,000. A CT scan showed his abscess and pleural space collection. He had a thoracentesis today. He has been on vancomycin, cefepime, and azithromycin overnight. His white count is down to 16,000. His maximum temperature has been 38.1 overnight; it is 37 now. His chills and sweats are a little bit better. He has dyspnea on exertion. He has a productive cough. He has right- sided chest pain worse with the deep breath. He has not had an infection in the past requiring a hospital admission. PAST MEDICAL HISTORY: 1. Pneumonia. 2. Eustachian tube placement. MEDICATIONS: 1. Tylenol. 2. Benzonatate. 3. Cefepime 2 g IV every 12 hours. 4. Azithromycin 500 mg IV daily. 5. Vancomycin 1 g every 8 hours. ALLERGIES: No known drug allergies. FAMILY HISTORY: No recurrent infections or tuberculosis and both parents are alive and healthy. 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 No travel or sick contacts. REVIEW OF SYSTEMS: A 14-point review of systems was all negative except as noted above in history of present illness. PHYSICAL EXAM: Vital Signs: Temperature 37, heart rate 83, respiratory rate 16 , blood pressure 114/70, oxygen saturation 99% on room air. In general, he is awake, not in distress. Neurologic: He is oriented x3, follows all commands. HEENT: There is no thrush. There is no conjunctival hemorrhage. Oropharynx: Without lesions. Neck: Supple without mass. Lymph Nodes: There is no cervical , supraclavicular, inguinal, axillary, or epitrochlear lymphadenopathy. Heart: Regular rate and rhythm without murmurs, rubs, or gallops. Lungs: Decreased breath sounds to the right base. There is egophony. There are no wheezes or rales. Abdomen: Soft, nontender, nondistended. There are bowel sounds present. Skin: There is no rash or splinter hemorrhages. Musculoskeletal: There is no spine tenderness to palpation or joint synovitis. LABORATORY DATA: White blood cell count 16, hemoglobin 11, MCV is 90, platelets 327. Creatinine is 0.7. Troponin was 0.07 yesterday, 0.01 today. CRP 194 and was 325 on his admission on 06/17/17. Please see impressions and recommendations as outlined above, which I have discussed with Dr. Barroso. Thank you for asking me to see Mr. Del Cid in consultation. [id number]/[facility] #: [id number] [facility]LAND[facility]ym[facility]
[2017-06-25] MEDS ORDERED: NS 0.9% 1000 ML* 1,000 ML IV ONE (20:00)
--- NOTE | 2017-06-25 20:53 | CONS ---
PULMONARY CONSULTATION REPORT: DATE OF CONSULT: 06/25/17 CONSULTATION REQUESTED BY: Bryant Cerda NP REASON FOR CONSULT: Pneumonia. HISTORY OF PRESENT ILLNESS: The patient is a 22-year-old male, student of [employer], who was recently diagnosed and treated for influenza with Tamiflu 3 weeks ago. He started feeling better other than dry cough. The patient started having worsening symptoms with worsening cough productive of phlegm, associated with streaks of blood. He was seen in the emergency room on 06/17/17 , was given Levaquin. The patient returned back for worsening symptoms. He has been having significant fatigue, worsening cough, dyspnea on exertion. He was evaluated in [place], was noted to have elevated white count and a chest x- ray in comparison with prior x-ray was progressively worsened, was referred to emergency room for further evaluation. The patient denies fevers, has been having night sweats for the past 2 days and chills. He has been having cough, productive of dark phlegm. The patient had chest x-ray and CT scan of the chest. I have personally reviewed chest x-ray and CT scan of the chest in comparison with his prior studies. CT scan of the chest done this morning was suggestive of right lower lobe consolidation with focal areas of gas and fluid densities in subpleural location associated with small right pleural effusion. No significant mediastinal or hilar adenopathy was noted. Findings were consistent with possible lung abscess medially in the area of consolidation. The patient was also noted to have elevated white count of 20 on admission and slightly improved to 16 from this morning. The patient also noted to have significantly elevated CRP. His troponin was slightly elevated upon admission. Repeat troponins were negative. Lactic acid was within normal limits. The patient had thoracentesis this morning, 250 mL of fluid was removed as per the patient. Fluid characteristics showed neutrophil predominant fluid. Rest of studies is pending. The patient was seen and examined at bedside. The patient reports improvement in breathing. The patient denies improvement in chest discomfort. Has not been coughing so much. The patient denies any fevers, has been having some night sweats. PAST MEDICAL HISTORY: Recent influenza. PAST SURGICAL HISTORY: Eustachian tube placed. MEDICATIONS: At home: 1. Zofran. 2. Tylenol. 3. Robitussin. ALLERGIES TO MEDICATIONS: No known drug allergies. FAMILY HISTORY: No health issues in the family. SOCIAL HISTORY: Nonsmoker. No alcohol or drug abuse. The patient is sophomore at [employer]. REVIEW OF SYSTEMS: All 14 systems reviewed and as per HPI. PHYSICAL EXAM: The patient in bed, in no apparent distress, alert, awake, oriented x3. Vital Signs: Temperature 98.4, pulse 97 beats per minute, respiratory rate 20 per minute, O2 sat 99% on room air, and blood pressure 123/ 66. HEENT: Pupils equal, reactive to light. Mucous membranes moist. Lungs: Clear to auscultation with decreased breath sounds at right base. Cardiovascular: S1, S2 present. Abdomen: Soft, nontender, nondistended. Bowel sounds present. Extremities: Normal range of motion. Neurologic: No focal deficits. DIAGNOSTIC STUDIES/LAB DATA: Elevated white count at 16.4 from today, hemoglobin 11.1, hematocrit 33, platelet count of 327. Sodium 137, potassium 4.2, chloride 107, bicarb 22, BUN 8, creatinine 0.74. Elevated CRP at 194. Influenza A and B negative. Chest x-ray and CT scan of the chest as described above in HPI. IMPRESSION/RECOMMENDATIONS: A 22-year-old male with history of recent influenza with post-influenza pneumonia and lung abscess. The patient on broad- spectrum antibiotics. The patient on ceftriaxone and vancomycin. Infectious Disease evaluation noted. Pleural fluid was drained. He, however, needs serial chest x-ray to rule out recurrent effusion or worsening of pleural effusion. Lung abscess located more medially. Given no complex effusion, does not need fibrinolytics or chest tube placement. Will need followup complete pleural fluid results. I do not believe he needs any surgical intervention at this time. Thank you for allowing me to participate in the care of your patient. Will follow up with you. [id number]/[facility] #: [id number] KENDRICK
[2017-06-25] MEDS: NS 0.9% 1000 ML* 1,000 ML IV SCH (21:14)
[2017-06-26] MEDS: Vancomycin(*) 1,000 MG in NS 0.9% 250 ML* 250 ML IVPB SCH ×4 (01:11→21:53)
[2017-06-26 06:50] LABS: Hematocrit 35 % (42-52); Hemoglobin 12.2 g/dl (14.0-18.0); Mean Corpuscular HGB Conc 35 g/dl (31-36); Mean Corpuscular Hemoglobin 31 pg (27-31); Mean Corpuscular Volume 89 fL (80-94); Mean Platelet Volume 7.4 um3 (7.4-10.4); Platelet Count 363 10^3/ul (150-450); Red Blood Count 3.99 10^6/ul (4.0-5.4); Red Cell Distribution Width 14 % (10.5-15); White Blood Count 15.1 10^3/ul (3.5-10.8)
[2017-06-26 06:51] LABS: ABS Basophils 0 10^3/ul (0-0.2); ABS Eosinophils 0.4 10^3/ul (0-0.6); ABS Lymphocytes 1.3 10^3/ul (1.0-4.8); ABS Neutrophils 12.3 10^3/ul (1.5-7.7)
[2017-06-26 07:12] LABS: EGFR Non-African American 139.2 (>60)
[2017-06-26 07:20] LABS: Monocytes % 11 % (0-7)
[2017-06-26] MEDS ORDERED: Vancomycin Trough Check NOTE FOLLOW UP ONE (08:30)
[2017-06-26] MEDS: Benzonatate CAP* 100 MG PO SCH ×3 (10:37→21:53)
[2017-06-26] MEDS: NS 0.9% 1000 ML* 1,000 ML IV SCH (10:37)
--- NOTE | 2017-06-26 14:25 | PN ---
Progress Note - Progress Note Date of Service: 06/26/17 - Pulm f/u note Note: Pt seen and examined at bedside. Pt reports improvement in chest pain and cough Vital Signs Temp Pulse Resp BP Pulse Ox 99.3 F 76 16 116/72 98 06/26/17 07:20 06/26/17 07:20 06/26/17 08:00 06/26/17 07:20 06/26/17 08:00 Active Medications Generic Name Dose Route Start Last Admin Trade Name Freq PRN Reason Stop Dose Admin Acetaminophen 650 mg 06/24/17 20:14 06/24/17 22:25 Tylenol Tab* PO 650 mg Q4H PRN Administration FEVER/PAIN Benzonatate 200 mg 06/25/17 14:00 06/26/17 10:37 Tessalon Cap* PO 200 mg TID GARY Administration Heparin Sodium (Porcine) 1 - 3 ml 06/26/17 18:00 Heparin Flush Picc/Ml/Cvc(*) FLUSH 0600,1800 GARY Protocol Ceftriaxone Sodium 1 gm/ 50 mls @ 200 mls/hr 06/25/17 17:00 06/25/17 17:44 Sodium Chloride IVPB 200 mls/hr Q24H GARY Administration Sodium Chloride 1,000 mls @ 75 mls/hr 06/25/17 21:00 06/26/17 10:37 Ns 0.9% 1000 Ml* IV 75 mls/hr PER RATE GARY Administration Vancomycin HCl 1,000 mg/ 250 mls @ 166.667 mls/hr 06/26/17 15:00 Sodium Chloride IVPB Q6H GARY Ondansetron HCl 4 mg 06/24/17 20:14 Zofran Inj* IV Q6H PRN NAUSEA Pharmacy Consult 1 note 06/24/17 21:15 Vancomycin Per Pharmacy* FOLLOW UP . PRN PER PROTOCOL Pharmacy Profile Note 0 note 06/28/17 08:30 Vancomycin Trough Check FOLLOW UP 06/28/17 08:31 0830 ONE Gen: Pt in NAD HEENT: No scleral icterus,supple, no JVD Respiratory: CLear to auscultaiton, diminshed BS at Rt base Cardiovascular: S, S2+, RRR, No edema Extremities: No Edema, No Clubbing, normal ROM Skin: No Rash or Ulcers Neurological: Alert and Oriented x 3,no focal defecits Laboratory Results - last 24 hr 06/24/17 06/25/17 06/26/17 20:25 11:50 06:16 WBC RBC Hgb Hct MCV MCH MCHC RDW Plt Count MPV Neut % (Auto) Lymph % (Auto) [place] % (Auto) Eos % (Auto) Baso % (Auto) Absolute Neuts (auto) Absolute Lymphs (auto) Absolute Monos (auto) Absolute Eos (auto) Absolute Basos (auto) Absolute Nucleated RBC Immature Gran % Neutrophils % Lymphocytes % Monocytes % Eosinophils % Basophils % Metamyelocytes % Myelocytes % Nucleated RBC % Abs Neuts (Manual) Abs Lymphs (Manual) Abs Monocytes (Manual) Absolute Eos (Manual) Abs Basophils (Manual) Normal RBC Morphology BUN 7 Creatinine 0.72 Est GFR ( Amer) 179.0 Est GFR (Non-Af Amer) 139.2 C-Reactive Protein 100.96 H Fluid Cell Count Rvw By Vancomycin Trough HIV 1&2 Antibody Nonreactive 06/26/17 06/26/17 06:16 09:02 WBC 15.1 H RBC 3.99 L Hgb 12.2 L Hct 35 L MCV 89 MCH 31 MCHC 35 RDW 14 Plt Count 363 MPV 7.4 Neut % (Auto) Not Reportable Lymph % (Auto) Not Reportable [place] % (Auto) Not Reportable Eos % (Auto) Not Reportable Baso % (Auto) Not Reportable Absolute Neuts (auto) 12.3 H Absolute Lymphs (auto) 1.3 Absolute Monos (auto) 1.0 H Absolute Eos (auto) 0.4 Absolute Basos (auto) 0 Absolute Nucleated RBC Not Reportable Immature Gran % 4 Neutrophils % 74 Lymphocytes % 7 L Monocytes % 11 H Eosinophils % 4 Basophils % 0 Metamyelocytes % 1 Myelocytes % 3 H Nucleated RBC % Not Reportable Abs Neuts (Manual) 11.2 H Abs Lymphs (Manual) 1.1 Abs Monocytes (Manual) 1.7 H Absolute Eos (Manual) 0.6 Abs Basophils (Manual) 0 Normal RBC Morphology Normal BUN Creatinine Est GFR ( Amer) Est GFR (Non-Af Amer) C-Reactive Protein Fluid Cell Count Rvw By Vancomycin Trough 8.1 HIV 1&2 Antibody I/R: 22 y o m with recent Influenza infection complicated by PNA and lung abscess Pt with neutrophil predominant pl fluid, cultures negative to date, rest of pl fluid studies not sent CT chest was done prior to thoracentesis, showed small effusion, no obvious loculations Will need 4 week course of abx Will need f/u imaging in 2 weeks to ensure improvement and to evaluate for worsening effusion Doesnot need chest tube at this time D/w Dr Miranda
[2017-06-26] MEDS: cefTRIAXone(*) 1 GM in NS 0.9% 50 ML* 50 ML IVPB SCH (17:07)
--- NOTE | 2017-06-26 21:04 | PN ---
Subjective Date of Service: 06/26/17 Interval History: Feels good. No complaints today except a cough. Objective Active Medications: Acetaminophen (Tylenol Tab*) 650 mg PO Q4H PRN PRN Reason: FEVER/PAIN Last Admin: 06/24/17 22:25 Dose: 650 mg Benzonatate (Tessalon Cap*) 200 mg PO TID [facility] Last Admin: 06/26/17 15:05 Dose: 200 mg Heparin Sodium (Porcine) (Heparin Flush Picc/Ml/Cvc(*)) 1 - 3 ml FLUSH 0600, 1800 [facility] PRN Reason: Protocol Last Admin: 06/26/17 17:07 Dose: Not Given Ceftriaxone Sodium 1 gm/ (Sodium Chloride) 50 mls @ 200 mls/hr IVPB Q24H [facility] Last Admin: 06/26/17 17:07 Dose: 200 mls/hr Sodium Chloride (Ns 0.9% 1000 Ml*) 1,000 mls @ 75 mls/hr IV PER RATE [facility] Last Admin: 06/26/17 10:37 Dose: 75 mls/hr Vancomycin HCl 1,000 mg/ (Sodium Chloride) 250 mls @ 166.667 mls/hr IVPB Q6H [facility] Last Admin: 06/26/17 15:05 Dose: 166.667 mls/hr Ondansetron HCl (Zofran Inj*) 4 mg IV Q6H PRN PRN Reason: NAUSEA Pharmacy Consult (Vancomycin Per Pharmacy*) 1 note FOLLOW UP . PRN PRN Reason: PER PROTOCOL Pharmacy Profile Note (Vancomycin Trough Check) 0 note FOLLOW UP 0830 ONE Stop: 06/28/17 08:31 Vital Signs - 8 hr 06/26/17 06/26/17 06/26/17 15:37 19:18 19:43 Temperature 98.4 F 97.9 F Pulse Rate 79 96 Respiratory 20 20 20 Rate Blood Pressure 111/61 119/71 (mmHg) O2 Sat by Pulse 100 99 99 Oximetry Oxygen Devices in Use Now: None Appearance: alert, well appearing young man Eyes: No Scleral Icterus Ears/Nose/Mouth/Throat: NL Teeth, Lips, Gums, Clear Oropharnyx Neck: NL Appearance and Movements; NL JVP Respiratory: Symmetrical Chest Expansion and Respiratory Effort, Clear to Auscultation, - - decreased breath sounds right base Cardiovascular: NL Sounds; No Murmurs; No JVD, RRR, No Edema Abdominal: NL Sounds; No Tenderness; No Distention Lymphatic: No Cervical Adenopathy Extremities: No Edema Skin: No Rash or Ulcers Neurological: Alert and Oriented x 3 Result Diagrams: 06/26/17 06:16 06/26/17 06:16 Additional Lab and Data: Lab Results 06/24/17 06/24/17 06/24/17 Range/Units 17:00 17:00 17:00 WBC 20.4 H (3.5-10.8) 10^3/ul RBC 4.12 (4.0-5.4) 10^6/ul Hgb 12.4 L (14.0-18.0) g/dl Hct 37 L (42-52) % MCV 89 (80-94) fL MCH 30 (27-31) pg MCHC 34 (31-36) g/dl RDW 14 (10.5-15) % Plt Count 429 (150-450) 10^3/ul MPV 7.3 L (7.4-10.4) um3 Neut % (Auto) 84.8 H (38-83) % Lymph % (Auto) 7.0 L (25-47) % [place] % (Auto) 5.7 (0-7) % Eos % (Auto) 2.0 (0-6) % Baso % (Auto) 0.5 (0-2) % Absolute Neuts (auto) 17.3 H (1.5-7.7) 10^3/ul Absolute Lymphs (auto) 1.4 (1.0-4.8) 10^3/ul Absolute Monos (auto) 1.2 H (0-0.8) 10^3/ul Absolute Eos (auto) 0.4 (0-0.6) 10^3/ul Absolute Basos (auto) 0.1 (0-0.2) 10^3/ul Absolute Nucleated RBC 0 10^3/ul Nucleated RBC % 0.1 INR (Anticoag Therapy) 1.32 H (0.77-1.02) APTT 33.9 (26.0-36.3) seconds Sodium 134 L (139-145) mmol/L Potassium 4.1 (3.5-5.0) mmol/L Chloride 96 L (101-111) mmol/L Carbon Dioxide 27 (22-32) mmol/L Anion Gap 11 (2-11) mmol/L BUN 11 (6-24) mg/dL Creatinine 0.79 (0.67-1.17) mg/dL Est GFR ( Amer) 160.8 (>60) Est GFR (Non-Af Amer) 125.0 (>60) BUN/Creatinine Ratio 13.9 (8-20) Glucose 105 H (70-100) mg/dL Lactic Acid (0.5-2.0) mmol/L Calcium 9.4 (8.6-10.3) mg/dL Total Bilirubin 0.60 (0.2-1.0) mg/dL AST 17 (13-39) U/L ALT 19 (7-52) U/L Alkaline Phosphatase 72 (34-104) U/L Total Creatine Kinase 96 (10-223) U/L Troponin I 0.07 H* (<0.04) ng/mL C-Reactive Protein 194.27 H (< 5.00) mg/L Total Protein 8.5 (6.4-8.9) g/dL Albumin 3.5 (3.2-5.2) g/dL Globulin 5.0 H (2-4) g/dL Albumin/Globulin Ratio 0.7 L (1-3) Urine Color Urine Appearance Urine pH (5-9) Ur Specific [place] (1.010-1.030) Urine Protein (Negative) Urine Ketones (Negative) Urine Blood (Negative) Urine Nitrate (Negative) Urine Bilirubin (Negative) Urine Urobilinogen (Negative) Ur Leukocyte Esterase (Negative) Urine Glucose (Negative) 06/24/17 06/24/17 Range/Units 17:00 19:49 WBC (3.5-10.8) 10^3/ul RBC (4.0-5.4) 10^6/ul Hgb (14.0-18.0) g/dl Hct (42-52) % MCV (80-94) fL MCH (27-31) pg MCHC (31-36) g/dl RDW (10.5-15) % Plt Count (150-450) 10^3/ul MPV (7.4-10.4) um3 Neut % (Auto) (38-83) % Lymph % (Auto) (25-47) % [place] % (Auto) (0-7) % Eos % (Auto) (0-6) % Baso % (Auto) (0-2) % Absolute Neuts (auto) (1.5-7.7) 10^3/ul Absolute Lymphs (auto) (1.0-4.8) 10^3/ul Absolute Monos (auto) (0-0.8) 10^3/ul Absolute Eos (auto) (0-0.6) 10^3/ul Absolute Basos (auto) (0-0.2) 10^3/ul Absolute Nucleated RBC 10^3/ul Nucleated RBC % INR (Anticoag Therapy) (0.77-1.02) APTT (26.0-36.3) seconds Sodium (139-145) mmol/L Potassium (3.5-5.0) mmol/L Chloride (101-111) mmol/L Carbon Dioxide (22-32) mmol/L Anion Gap (2-11) mmol/L BUN (6-24) mg/dL Creatinine (0.67-1.17) mg/dL Est GFR ( Amer) (>60) Est GFR (Non-Af Amer) (>60) BUN/Creatinine Ratio (8-20) Glucose (70-100) mg/dL Lactic Acid 1.2 (0.5-2.0) mmol/L Calcium (8.6-10.3) mg/dL Total Bilirubin (0.2-1.0) mg/dL AST (13-39) U/L ALT (7-52) U/L Alkaline Phosphatase (34-104) U/L Total Creatine Kinase (10-223) U/L Troponin I (<0.04) ng/mL C-Reactive Protein (< 5.00) mg/L Total Protein (6.4-8.9) g/dL Albumin (3.2-5.2) g/dL Globulin (2-4) g/dL Albumin/Globulin Ratio (1-3) Urine Color Yellow Urine Appearance Clear Urine pH 7.0 (5-9) Ur Specific [place] 1.015 (1.010-1.030) Urine Protein Negative (Negative) Urine Ketones Trace A (Negative) Urine Blood Negative (Negative) Urine Nitrate Negative (Negative) Urine Bilirubin Negative (Negative) Urine Urobilinogen Negative (Negative) Ur Leukocyte Esterase Negative (Negative) Urine Glucose Negative (Negative) Microbiology and Other Data: Microbiology 06/25/17 01:17 Gram Stain - Final Sputum 06/24/17 22:25 Legionella Urinary Antigen - Final Urine Negative Legionella Antigen Streptococcus pneumoniae Ag Screen - Final Negative S. pneumo Antigen Assess/Plan/Problems-Billing Assessment: - Patient Problems (1) Parapneumonic effusion Current Visit: Yes Status: Acute Code(s): J18.9 - PNEUMONIA, UNSPECIFIED ORGANISM; J91.8 - PLEURAL EFFUSION IN OTHER CONDITIONS CLASSIFIED ELSEWHERE SNOMED Code(s): 21667065 Comment: s/p diagnostic and therapeutic thoracentesis, no ldh/protein cultures negative plan for ceftriaxone/linezolid x 4 weeks empirically via picc line
[2017-06-26] MEDS: guaiFENesin/CODIEN 100MG-10MG* 5 ML UDC PO PRN (22:02)
[2017-06-27] MEDS: Vancomycin(*) 1,000 MG in NS 0.9% 250 ML* 250 ML IVPB SCH ×3 (03:49→15:14)
[2017-06-27] MEDS: NS 0.9% 1000 ML* 1,000 ML IV SCH ×2 (03:49→20:29)
[2017-06-27] MEDS: Benzonatate CAP* 100 MG PO SCH ×3 (09:34→21:28)
--- NOTE | 2017-06-27 10:55 | RAD ---
HISTORY: effusion COMPARISONS: June 24, 2017 VIEWS: 1: frontal portable view of the chest at 9:45 AM FINDINGS: LINES AND TUBES: None. CARDIOMEDIASTINAL SILHOUETTE: The cardiomediastinal silhouette is normal for portable technique. PLEURA: There is a stable small right pleural effusion LUNG PARENCHYMA: There is persistent alveolar opacification of the right lung base. ABDOMEN: The upper abdomen is clear. There is no subphrenic gas. BONES AND SOFT TISSUES: No bone or soft tissue abnormalities are noted. IMPRESSION: STABLE RIGHT PLEURAL EFFUSION WITH AIRSPACE DISEASE OF THE RIGHT LUNG BASE.
--- NOTE | 2017-06-27 15:52 | PN ---
Subjective Date of Service: 06/27/17 Interval History: No overnight events. Feels good and is anxious to go home. Afebrile, has been walking the halls. Gets tachycardic with ambulation and thinks he notices his heart rate, but is not sure and he denies shortness of breath, lightheadedness or dizziness. Objective Active Medications: Acetaminophen (Tylenol Tab*) 650 mg PO Q4H PRN PRN Reason: FEVER/PAIN Last Admin: 06/24/17 22:25 Dose: 650 mg Benzonatate (Tessalon Cap*) 200 mg PO TID [facility] Last Admin: 06/27/17 14:12 Dose: 200 mg Guaifenesin/Codeine Phosphate (Robitussin Ac 100mg-10mg*) 5 ml PO Q4H PRN PRN Reason: COUGH Last Admin: 06/26/17 22:02 Dose: 5 ml Heparin Sodium (Porcine) (Heparin Flush Picc/Ml/Cvc(*)) 1 - 3 ml FLUSH 0600, 1800 [facility] PRN Reason: Protocol Last Admin: 06/27/17 06:02 Dose: Not Given Ceftriaxone Sodium 1 gm/ (Sodium Chloride) 50 mls @ 200 mls/hr IVPB Q24H [facility] Last Admin: 06/26/17 17:07 Dose: 200 mls/hr Sodium Chloride (Ns 0.9% 1000 Ml*) 1,000 mls @ 75 mls/hr IV PER RATE [facility] Last Admin: 06/27/17 03:49 Dose: 75 mls/hr Linezolid (Zyvox 600 Mg Ivpremix(*)) 600 mg in 300 mls @ 300 mls/hr IVPB Q12H [facility] Ondansetron HCl (Zofran Inj*) 4 mg IV Q6H PRN PRN Reason: NAUSEA Vital Signs - 8 hr 06/27/17 06/27/17 06/27/17 07:38 08:00 08:05 Temperature 98.3 F Pulse Rate 66 Respiratory 16 Rate Blood Pressure 120/64 (mmHg) O2 Sat by Pulse 98 98 Oximetry 06/27/17 11:17 Temperature 98.1 F Pulse Rate 79 Respiratory 16 Rate Blood Pressure 122/60 (mmHg) O2 Sat by Pulse 100 Oximetry Oxygen Devices in Use Now: None Appearance: alert, well appearing young man Eyes: No Scleral Icterus Ears/Nose/Mouth/Throat: NL Teeth, Lips, Gums Neck: NL Appearance and Movements; NL JVP Respiratory: Symmetrical Chest Expansion and Respiratory Effort, - - decreased breath sounds right base Cardiovascular: NL Sounds; No Murmurs; No JVD, RRR Abdominal: NL Sounds; No Tenderness; No Distention Lymphatic: No Cervical Adenopathy Neurological: Alert and Oriented x 3 Result Diagrams: 06/26/17 06:16 06/26/17 06:16 Additional Lab and Data: Lab Results 06/24/17 06/24/17 06/24/17 Range/Units 17:00 17:00 17:00 WBC 20.4 H (3.5-10.8) 10^3/ul RBC 4.12 (4.0-5.4) 10^6/ul Hgb 12.4 L (14.0-18.0) g/dl Hct 37 L (42-52) % MCV 89 (80-94) fL MCH 30 (27-31) pg MCHC 34 (31-36) g/dl RDW 14 (10.5-15) % Plt Count 429 (150-450) 10^3/ul MPV 7.3 L (7.4-10.4) um3 Neut % (Auto) 84.8 H (38-83) % Lymph % (Auto) 7.0 L (25-47) % [place] % (Auto) 5.7 (0-7) % Eos % (Auto) 2.0 (0-6) % Baso % (Auto) 0.5 (0-2) % Absolute Neuts (auto) 17.3 H (1.5-7.7) 10^3/ul Absolute Lymphs (auto) 1.4 (1.0-4.8) 10^3/ul Absolute Monos (auto) 1.2 H (0-0.8) 10^3/ul Absolute Eos (auto) 0.4 (0-0.6) 10^3/ul Absolute Basos (auto) 0.1 (0-0.2) 10^3/ul Absolute Nucleated RBC 0 10^3/ul Nucleated RBC % 0.1 INR (Anticoag Therapy) 1.32 H (0.77-1.02) APTT 33.9 (26.0-36.3) seconds Sodium 134 L (139-145) mmol/L Potassium 4.1 (3.5-5.0) mmol/L Chloride 96 L (101-111) mmol/L Carbon Dioxide 27 (22-32) mmol/L Anion Gap 11 (2-11) mmol/L BUN 11 (6-24) mg/dL Creatinine 0.79 (0.67-1.17) mg/dL Est GFR ( Amer) 160.8 (>60) Est GFR (Non-Af Amer) 125.0 (>60) BUN/Creatinine Ratio 13.9 (8-20) Glucose 105 H (70-100) mg/dL Lactic Acid (0.5-2.0) mmol/L Calcium 9.4 (8.6-10.3) mg/dL Total Bilirubin 0.60 (0.2-1.0) mg/dL AST 17 (13-39) U/L ALT 19 (7-52) U/L Alkaline Phosphatase 72 (34-104) U/L Total Creatine Kinase 96 (10-223) U/L Troponin I 0.07 H* (<0.04) ng/mL C-Reactive Protein 194.27 H (< 5.00) mg/L Total Protein 8.5 (6.4-8.9) g/dL Albumin 3.5 (3.2-5.2) g/dL Globulin 5.0 H (2-4) g/dL Albumin/Globulin Ratio 0.7 L (1-3) Urine Color Urine Appearance Urine pH (5-9) Ur Specific [place] (1.010-1.030) Urine Protein (Negative) Urine Ketones (Negative) Urine Blood (Negative) Urine Nitrate (Negative) Urine Bilirubin (Negative) Urine Urobilinogen (Negative) Ur Leukocyte Esterase (Negative) Urine Glucose (Negative) 06/24/17 06/24/17 Range/Units 17:00 19:49 WBC (3.5-10.8) 10^3/ul RBC (4.0-5.4) 10^6/ul Hgb (14.0-18.0) g/dl Hct (42-52) % MCV (80-94) fL MCH (27-31) pg MCHC (31-36) g/dl RDW (10.5-15) % Plt Count (150-450) 10^3/ul MPV (7.4-10.4) um3 Neut % (Auto) (38-83) % Lymph % (Auto) (25-47) % [place] % (Auto) (0-7) % Eos % (Auto) (0-6) % Baso % (Auto) (0-2) % Absolute Neuts (auto) (1.5-7.7) 10^3/ul Absolute Lymphs (auto) (1.0-4.8) 10^3/ul Absolute Monos (auto) (0-0.8) 10^3/ul Absolute Eos (auto) (0-0.6) 10^3/ul Absolute Basos (auto) (0-0.2) 10^3/ul Absolute Nucleated RBC 10^3/ul Nucleated RBC % INR (Anticoag Therapy) (0.77-1.02) APTT (26.0-36.3) seconds Sodium (139-145) mmol/L Potassium (3.5-5.0) mmol/L Chloride (101-111) mmol/L Carbon Dioxide (22-32) mmol/L Anion Gap (2-11) mmol/L BUN (6-24) mg/dL Creatinine (0.67-1.17) mg/dL Est GFR ( Amer) (>60) Est GFR (Non-Af Amer) (>60) BUN/Creatinine Ratio (8-20) Glucose (70-100) mg/dL Lactic Acid 1.2 (0.5-2.0) mmol/L Calcium (8.6-10.3) mg/dL Total Bilirubin (0.2-1.0) mg/dL AST (13-39) U/L ALT (7-52) U/L Alkaline Phosphatase (34-104) U/L Total Creatine Kinase (10-223) U/L Troponin I (<0.04) ng/mL C-Reactive Protein (< 5.00) mg/L Total Protein (6.4-8.9) g/dL Albumin (3.2-5.2) g/dL Globulin (2-4) g/dL Albumin/Globulin Ratio (1-3) Urine Color Yellow Urine Appearance Clear Urine pH 7.0 (5-9) Ur Specific [place] 1.015 (1.010-1.030) Urine Protein Negative (Negative) Urine Ketones Trace A (Negative) Urine Blood Negative (Negative) Urine Nitrate Negative (Negative) Urine Bilirubin Negative (Negative) Urine Urobilinogen Negative (Negative) Ur Leukocyte Esterase Negative (Negative) Urine Glucose Negative (Negative) Microbiology and Other Data: Microbiology 06/25/17 01:17 Gram Stain - Final Sputum 06/24/17 22:25 Legionella Urinary Antigen - Final Urine Negative Legionella Antigen Streptococcus pneumoniae Ag Screen - Final Negative S. pneumo Antigen Assess/Plan/Problems-Billing Assessment: - Patient Problems (1) Parapneumonic effusion Current Visit: Yes Status: Acute Code(s): J18.9 - PNEUMONIA, UNSPECIFIED ORGANISM; J91.8 - PLEURAL EFFUSION IN OTHER CONDITIONS CLASSIFIED ELSEWHERE SNOMED Code(s): 88229181 Comment: s/p diagnostic and therapeutic thoracentesis, no ldh/protein, pH, or glucose cultures negative plan for ceftriaxone/linezolid x 4 weeks via picc line CXR today shows unchanged pleural effusion. Case discussed with Dr. Magana-- unchanged effusion is expected. She will follow up in 3 weeks; I scheduled this appointment for him. Check ambulatory pulse ox. Status and Disposition: I updated Zacarias's mom Lima on the plan today. She understands and asks that I contact C[facility] registrar to excuse him from the time he has missed in school. I will do this.
[2017-06-27] MEDS: Linezolid 600 MG IVPREMIX(*) 600 MG/300 ML BAG IVPB SCH (16:17)
--- NOTE | 2017-06-27 17:04 | PN ---
Progress Note - Progress Note Date of Service: 06/27/17 - Pulm f/u note Note: Pt seen and examined at bedside. Pt reports improvement in sx. Was able to ambulate today without much limitation. Denies signficant cough Active Medications Generic Name Dose Route Start Last Admin Trade Name Freq PRN Reason Stop Dose Admin Acetaminophen 650 mg 06/24/17 20:14 06/24/17 22:25 Tylenol Tab* PO 650 mg Q4H PRN Administration FEVER/PAIN Benzonatate 200 mg 06/25/17 14:00 06/27/17 14:12 Tessalon Cap* PO 200 mg TID GARY Administration Guaifenesin/Codeine Phosphate 5 ml 06/26/17 21:02 06/26/17 22:02 Robitussin Ac 100mg-10mg* PO 5 ml Q4H PRN Administration COUGH Heparin Sodium (Porcine) 1 - 3 ml 06/26/17 18:00 06/27/17 06:02 Heparin Flush Picc/Ml/Cvc(*) FLUSH Not Given 0600,1800 [facility] Protocol Ceftriaxone Sodium 1 gm/ 50 mls @ 200 mls/hr 06/25/17 17:00 06/26/17 17:07 Sodium Chloride IVPB 200 mls/hr Q24H GARY Administration Sodium Chloride 1,000 mls @ 75 mls/hr 06/25/17 21:00 06/27/17 03:49 Ns 0.9% 1000 Ml* IV 75 mls/hr PER RATE GARY Administration Linezolid 600 mg in 300 mls @ 300 mls/hr 06/27/17 16:00 06/27/17 16:17 Zyvox 600 Mg Ivpremix(*) IVPB 300 mls/hr Q12H GARY Administration Ondansetron HCl 4 mg 06/24/17 20:14 Zofran Inj* IV Q6H PRN NAUSEA Vital Signs Temp Pulse Resp BP Pulse Ox 98.1 F 78 22 136/75 100 06/27/17 11:17 06/27/17 15:21 06/27/17 15:21 06/27/17 15:21 06/27/17 15:21 Gen: Pt in NAD HEENT: No scleral icterus,supple, no JVD Respiratory: CLear to auscultaiton, diminshed BS at Rt base Cardiovascular: S, S2+, RRR, No edema Extremities: No Edema, No Clubbing, normal ROM Skin: No Rash or Ulcers Neurological: Alert and Oriented x 3,no focal defecits Labs: No new labs CXR: Was personally reviewed- No significant change I/R: 22 y o m with recent Influenza infection complicated by PNA and lung abscess Pt with neutrophil predominant pl fluid, cultures negative to date, rest of pl fluid studies not sent CT chest was done prior to thoracentesis, showed small effusion, no obvious loculations Rpt CXR showed no signficant change Will need 4 week course of abx Will need f/u imaging in 2 weeks to ensure improvement and to evaluate for worsening effusion Doesnot need chest tube or surgical intervention at this time D/w Dr Miranda
[2017-06-27] MEDS: cefTRIAXone(*) 1 GM in NS 0.9% 50 ML* 50 ML IVPB SCH (17:29)
[2017-06-28] MEDS: guaiFENesin/CODIEN 100MG-10MG* 5 ML UDC PO PRN (00:38)
[2017-06-28] MEDS: Linezolid 600 MG IVPREMIX(*) 600 MG/300 ML BAG IVPB SCH (04:03)
[2017-06-28 07:29] VITALS: BP 107/66
[2017-06-28 07:36] LABS: ABS Basophils 0 10^3/ul (0-0.2); ABS Eosinophils 0.4 10^3/ul (0-0.6); ABS Lymphocytes 1.5 10^3/ul (1.0-4.8); ABS Neutrophils 9.3 10^3/ul (1.5-7.7); ABS Nucleated RBC 0 10^3/ul; Eosinophil % 3.2 % (0-6); Hematocrit 34 % (42-52); Hemoglobin 11.7 g/dl (14.0-18.0); Lymphocyte % 12.2 % (25-47); Mean Corpuscular HGB Conc 34 g/dl (31-36); Mean Corpuscular Hemoglobin 30 pg (27-31); Mean Corpuscular Volume 88 fL (80-94); Mean Platelet Volume 7.4 um3 (7.4-10.4); Nucleated Red Blood Cells % 0; Platelet Count 444 10^3/ul (150-450); Red Blood Count 3.86 10^6/ul (4.0-5.4); Red Cell Distribution Width 14 % (10.5-15); White Blood Count 12.2 10^3/ul (3.5-10.8)
[2017-06-28 07:46] LABS: EGFR Non-African American 132.8 (>60)
[2017-06-28] MEDS ORDERED: Vancomycin Trough Check NOTE FOLLOW UP ONE (08:30)
[2017-06-28] MEDS: Benzonatate CAP* 100 MG PO SCH (12:01)
--- NOTE | 2017-06-29 02:34 | DS ---
CC: Dr. Magana; Dr. Salgado DISCHARGE SUMMARY: DATE OF ADMISSION: 06/24/17 DATE OF DISCHARGE: 06/28/17 PRINCIPAL DISCHARGE DIAGNOSIS: Parapneumonic effusion. SECONDARY DISCHARGE DIAGNOSES: 1. Community-acquired pneumonia. 2. Recent influenza. DISCHARGE MEDICATIONS: 1. Ceftriaxone 1 g daily for 24 more days. 2. Linezolid 600 mg q.12 for 24 more days. 3. Guaifenesin with codeine cough syrup 5 mL q.6 p.r.n. cough. 4. Tessalon Perles 100 mg q.6 p.r.n. cough. HOSPITAL COURSE BY PROBLEM: Parapneumonic effusion. Mr. Del Cid was recently admitted from 06/17/17 t o 06/19/17 and was treated for community-acquired pneumonia with a course of levofloxacin; however, francisco jacques had been feeling well after his discharge to home and continued his antibiotics as prescribed. The n several days later, he noted shortness of breath with exertion and felt feverish. So, he went to [facility] for evaluation. He had blood work drawn there and was noted to have leukocytosi s to 21,000. So, he was sent to the emergency department. In the ED, his chest x-ray revealed interv al worsening of a right basilar airspace consolidation and enlargement of a dependent right pleural e ffusion. Then, he had a CT chest, which showed right lower lobe consolidation with a more focal area of mixed gas and fluid density within the medial base segment measuring up to 4.5 cm in size concern ing for pulmonary parenchymal abscess in the correct clinical setting with a small right pleural effu spencer. At this point, Dr. Salgado and Dr. Magana were consulted and a thoracentesis was performed. This was done with diagnostic intent. 150 cc of blood-tinged serous fluid was aspirated. We do not have glucose, pH, or LDH or protein from the pleural fluid. However, the Gram stain showed 4+ PMNs a nd the culture remained negative. Dr. Salgado recommended 4 weeks of IV antibiotics with the concer n that there may have been an underlying abscess and with negative cultures, he was empirically treat ed with vancomycin and ceftriaxone. However, during his hospitalization, it was difficult to get his vancomycin trough in a therapeutic range. So, he was switched to linezolid, which he will be discha rged on at a dose of 600 mg q.12 for 24 more days. He will also be continued on ceftriaxone 1 g monique y for 24 more days. He received a PICC line in his right upper extremity during this admission and r eceived teaching on PICC care and IV antibiotics. At the time of discharge, he has defervesced and h is ambulatory pulse ox was 97% on room air. DISPOSITION: Mr. Del Cid is discharged back to [facility] where he lives in a frat house. He has been arranged for home IV antibiotics and home nursing and has a followup appointment with Dr. Taras harp. Dr. Salgado will follow up his weekly CBCs for the linezolid and Mr. Del Cid has been provided both Dr. Salgado and Dr. Magana's office numbers should any questions or issues arise. He is instru cted to return to the emergency department if he develops fevers, chills, worsening cough or sputum, chest pain, shortness of breath. I have contacted his katja at [facility] and also arranged for lift to transport him to class over the next 3 weeks. Please contact me with any questions or concerns regarding this patient. [id number]/CPS #: [id number]
== END 2017-06-28 11:46 | disposition home or self-care (01) | DRG 871 ==
LOC: ED 15:28 → MEDTELE 20:03
PROVIDERS: ADMIT Hospitalist; ATTEND Internal Medicine
PROC: 0W993ZX Drainage of Right Pleural Cavity, Percutaneous Approach, Diagnostic (ICD-10-PCS; principal; 2017-06-25)
PROC: 02HV33Z Insertion of Infusion Device into Superior Vena Cava, Percutaneous Approach (ICD-10-PCS; 2017-06-25)
DX: A41.9 Sepsis, unspecified organism (principal); J85.1 Abscess of lung with pneumonia; J91.8 Pleural effusion in other conditions classified elsewhere; R74.8 Abnormal levels of other serum enzymes; J30.2 Other seasonal allergic rhinitis; Z72.89 Other problems related to lifestyle
CPT/HCPCS: 32555; 36415; 71045; 71046; 71250; 80048; 80053; 80202; 81003; 82550; 82565; 83605; 84484; 84520; 85025; 85610; 85730; 86140; 86703; 87040; 87205; 87899; 89051; 93005; 93306; 99282; A9270-GY; C1751; J0456; J0692; J0696; J2020; J3010; J3370

== ENCOUNTER 2017-10-01 17:08 | Emergency (ER) | payer OTHER ==
[2017-10-01 17:18] VITALS: BP 111/52
--- NOTE | 2017-10-01 17:46 | UC ---
Skin Complaint HPI - HPI Summary HPI Summary: 22 y/o male presents to the urgent care c/o left foot greater toe and nail for the past 3 days. Pt states pain is 5/10 at touch and redness is worse today w/ some mild yellowish drainage. Pt denies numbness or tingling sensation over toe and can move it w/o any problem. Pt denies fever, SOB, chest pain, abdominal pain, N/V/D. Pt is UTD w/ all vaccines for his age. - History of Current Complaint Chief Complaint: UCSkin Time Seen by Provider: 10/01/17 17:45 Stated Complaint: FOOT COMPLAINT Hx Obtained From: Patient Onset/Duration: Gradual Onset, Lasting Days - 3 days, Still Present, Worse Since - today Skin Exposure Onset/Duration: Days Ago - 3 days Timing: Constant Onset Severity: Mild Current Severity: Moderate Pain Intensity: 5 Pain Scale Used: 0-10 Numeric Location: Discrete, Foot (Left) - left big toe Character: Swelling, Redness, Raised, Painful Aggravating Factor(s): Touch Alleviating Factor(s): OTC Meds - neosporin Associated Signs & Symptoms: Positive: Rash - redness around left big toe, Drainage - yellowish, Tenderness. Negative: Fever, Chills - Allergy/Home Medications Allergies/Adverse Reactions: Allergies Allergy/AdvReac Type Severity Reaction Status Date / Time No Known Allergies Allergy Verified 10/01/17 17:18 Home Medications: Home Medications Adapalene 0.1% CREAM (NF) [Differin 0.1 % CREAM (NF)] 1 mg PO DAILY WITH MEAL [History Confirmed 10/01/17] Clindamycin 1% TOPICAL(NF) [Cleocin-T 1% TOPICAL(NF)] 1 applic .SEE ORDER DAILY WITH MEAL 10/01/17 [History Confirmed 10/01/17] Review of Systems Constitutional: Negative Skin: Other - left big toe redness, painful, swollen and yellowihs discharge Eyes: Negative ENT: Negative Respiratory: Negative Cardiovascular: Negative Gastrointestinal: Negative Genitourinary: Negative Motor: Negative Neurovascular: Negative Musculoskeletal: Other: - left big toe pain Neurological: Negative Psychological: Negative Is Patient Immunocompromised?: No All Other Systems Reviewed And Are Negative: Yes PMH/Surg Hx/FS Hx/Imm Hx Previously Healthy: Yes Other Endocrine History: Acne Respiratory History: Pneumonia Other Respiratory History: seasonal allergies - Surgical History Surgical History: Yes Surgery Procedure, Year, and Place: EAR TUBES - Family History Family History: mother has MS - Social History Occupation: Employed Full-time Lives: With Family Alcohol Use: Occasionally Substance Use Type: None Substance Use Comment - Amount & Last Used: unknown Smoking Status (MU): Never Smoked Tobacco - Immunization History Most Recent Influenza Vaccination: 2018 Most Recent Pneumonia Vaccination: none Vaccination Up to Date: Yes Physical Exam - Summary Physical Exam Summary: Vital Signs Reviewed: Yes General: well developed, well nourished male sitting in the examining table w/o any apparent distress Eye Exam: Normal Eyes: Positive: Conjunctiva Clear - PERRLA, EOMI, fundi grossly normal ENT: Positive: Normal ENT inspection, Hearing grossly normal, Pharynx normal, TMs normal Neck: Positive: Supple, Nontender, No Lymphadenopathy Respiratory: Positive: Chest non-tender, Lungs clear, Normal breath sounds, No respiratory distress Cardiovascular: Positive: RRR, No Murmur, Pulses Normal, Brisk Capillary Refill Abdomen Description: Positive: Nontender, No Organomegaly, Soft. Negative: CVA Tenderness (R), CVA Tenderness (L) Bowel Sounds: Positive: Present Musculoskeletal: Positive: Strength Intact, ROM Intact, No Edema Neurological: Positive: Alert, Muscle Tone Normal Psychological Exam: Normal Skin: Positive: LF big toe with a small erythematous pustule in the medial aspect of the nail w/ induration and some yellowish drainage and tender to palpation . FROM of phalanx left big toe and left foot, sensation is intact, capillary refill WNL, reflexes WNL Triage Information Reviewed: Yes Vital Signs: Initial Vital Signs Temp 98.4 F 10/01/17 17:12 Pulse 53 10/01/17 17:12 Resp 18 10/01/17 17:12 BP 111/52 10/01/17 17:12 Pulse Ox 100 10/01/17 17:12 Course/Dx - Course Course Of Treatment: 22 y/o male presents to the urgent care c/o left foot greater toe and nail for the past 3 days. Pt states pain is 5/10 at touch and redness is worse today w/ some mild yellowish drainage. Pt denies numbness or tingling sensation over toe and can move it w/o any problem. Pt denies fever, SOB, chest pain, abdominal pain, N/V/D. Pt is UTD w/ all vaccines for his age. Pt w/ left medial aspect ingrown toe nail on examination. No Hx of MRSA.Ingrown toenail removal procedure:The procedure was explained and consent obtained. Olmitz protocol performed. Digital block performed at the base of left big toe. Pt tolerated well procedure. Digital nerve block procedure performed with 2mL of Lido 1% with good anesthesia obtained. Sterile drape and prep were done. medial side of the toenail removed with nail splitting scissors. granulation tissue removed with Silver nitrate stick. topical Bacitracin applied over the area. Wound covered with sterile dressing. The patient tolerated the procedure well.Post -op shoe given. Pt Rx Keflex PO and Bacitracin oint. PT advised to f/u w/ PCP if not improvement for further management. Pt understood and agreed with D/C instructions. Pt Left the clinic ambulating A&OX3. Pt Rx Keflex PO and Bacitracin oint advised to soak foot on warm water w/ [place] as directed below. First dose of ABX given at the clinic tonight since pharmacy is closed. Advised to take Motrin for pain and swelling. D/C instructions explained. Father and Pt advised if not improvement of symptoms to return to the urgent care or [facility] for further management. Father and PT understood and agreed w/ plan of care. - Differential Diagnoses - Skin Complaint Differential Diagnoses: Abscess, Cellulitis, MRSA, Other - paronychia, ingrown toe nail - Diagnoses Provider Diagnoses: 1- left big toe ingrown toe nail w/ partial nails avulsion procedure Discharge - Sign-Out/Discharge Documenting (check all that apply): Patient Departure - D/c home - Discharge Plan Condition: Stable Disposition: HOME Prescriptions: Aluminum Sulf/Ca Acetate ROHINI* [[place] ROHINI*] 1 applic TOPICAL DAILY #1 box Bacitracin OINTMENT* 1 applic TOPICAL BID #1 tube Cephalexin CAP* [Keflex CAP*] 500 mg PO QID #28 cap Patient Education Materials: Ingrown Nail (ED) Referrals: [facility] - Nabeel COSBYll [Primary Care Provider] - 3 Days Additional Instructions: 1-Please take full course of antibiotic to avoid resistance. Keep wound clean and dry with a sterile dressing. Apply bacitracin topical as directed 2-. Take Ibuprofen PO q6-8hrs prn for pain or swelling. Use the post-up shoe to avoid flexion of your toe. 3-If you develop fever or redness despite antibiotic please go to the ER immediately for further management. 4- Wound culture sent to lab, if any abnormal result you will receive a call from us. 5- If not improvement of symptoms please f/u w/ your PCP or return to the urgent care for further management - Billing Disposition and Condition Condition: STABLE Disposition: Home Attestation Statement User Type: Provider - I was available for consult. This patient was seen by the DARRYL. The patient was not presented to, seen by, or examined by me. -Zander
[2017-10-01] MEDS ORDERED: Lidocaine 1%* 5 ML VIAL INJ ONE (17:57)
[2017-10-01] MEDS ORDERED: Silver Nitrate/Potassium Nitr* 1 EA STICK TOPICAL ONE (18:02)
--- NOTE | 2017-10-03 11:17 | PN ---
Progress Note - Progress Note Date of Service: 10/01/17 Note: Wound gram stain grew MRSA negative, staph aureus negative Culture pending. Patient given the following medications as prescription: Aluminum Sulf/Ca Acetate ROHINI* [[place] ROHINI*] 1 applic TOPICAL DAILY #1 box Bacitracin OINTMENT* 1 applic TOPICAL BID #1 tube Cephalexin CAP* [Keflex CAP*] 500 mg PO QID #28 cap Likely will cover. Will await sensitivities. <Daily Zuñiga - Last Filed: 10/04/17 07:23> Attestation Statement User Type: Provider - I was available for consult. This patient was seen by the DARRYL. The patient was not presented to, seen by, or examined by me. -Zander <Jenelle Benson - Last Filed: 10/04/17 14:28>
== END 2017-10-01 19:05 | disposition home or self-care (01) ==
LOC: UCEAST 17:08
DX: L60.0 Ingrowing nail (principal)
CPT/HCPCS: 11730; 87070; 87077; 87106; 87186; 87205; 87640; 87641; 99212; A9270-GY; G0463

== ENCOUNTER 2017-11-18 12:10 | Emergency (ER) | payer OTHER ==
[2017-11-18 12:27] VITALS: BP 112/72
--- NOTE | 2017-11-18 13:01 | UC ---
UC General HPI - HPI Summary HPI Summary: This pt is a 22 y/o male presenting to [facility] c/o fever, body aches ,sore throat since yesterday. This morning pt woke up with a sore throat. Denies nausea, vomiting, diarrhea, sinus pain, rash, abd pain, urinary symptoms. His temperature was 103 F today prior to coming in. Pt took 2 Ibuprofen prior to leaving his house with some relief. + po water without difficulty No sick contacts. NKDA. Pt has hx of pneumonia and thoracentesis approx. 5 months ago. Patients medication reviewed this visit. - History of Current Complaint Chief Complaint: UCRespiratory Stated Complaint: FEVER,SORE THROAT Time Seen by Provider: 11/18/17 12:56 Hx Obtained From: Patient Onset/Duration: Lasting Days - 1, Still Present Timing: Constant Current Severity: Moderate Pain Intensity: 4 Pain Location at: body aches Aggravating: nothing Alleviating: Ibuprofen Associated Signs & Symptoms: Positive: Fever, Other - POS: sore throat, body aches. Negative: Abdominal Pain, Cough, Chest Pain, Diarrhea, Nausea, Vomiting - Allergy/Home Medications Allergies/Adverse Reactions: Allergies Allergy/AdvReac Type Severity Reaction Status Date / Time No Known Allergies Allergy Verified 11/18/17 12:27 PMH/Surg Hx/FS Hx/Imm Hx - Additional Past Medical History Additional PMH: PMHx of pneumonia - abscess with drainage Previously Healthy: Yes Other Endocrine History: DENIES: diabetes Other Cardiovascular History: DENIES: HTN - Surgical History Surgical History: Yes Surgery Procedure, Year, and Place: EAR TUBES - Family History Known Family History: Positive: Other - mother has MS Family History: mother has MS - Social History Occupation: Student - at [employer] Alcohol Use: Occasionally Substance Use Type: None Substance Use Comment - Amount & Last Used: unknown Smoking Status (MU): Never Smoked Tobacco - Immunization History Most Recent Influenza Vaccination: 2018 Most Recent Pneumonia Vaccination: none Vaccination Up to Date: Yes Review of Systems Constitutional: Fever Skin: Negative Eyes: Negative ENT: Sore Throat Respiratory: Negative Cardiovascular: Negative Gastrointestinal: Negative Genitourinary: Negative Motor: Negative Neurovascular: Negative Musculoskeletal: Myalgia Neurological: Negative Psychological: Negative Is Patient Immunocompromised?: No All Other Systems Reviewed And Are Negative: Yes Physical Exam - Summary Physical Exam Summary: Vital Signs Reviewed: Yes A+Ox3, no distress, drinking water without difficulty Eyes: Conjunctiva Clear, CRISTIAN. EOM intact and full ENT: Hearing grossly normal TM x 2 clear, mmoist, turbinates wnl uvula midline, + diffuse erythema oropharynx left tonsil with fullness + scant exudate uvula midline no drooling, no posturing Neck: Positive: Supple Respiratory: Positive: No respiratory distress, No accessory muscle use + CTA throughout no w/r Cardiovascular: RRR nl s1, s2 no m/r CBT <2 sec abd soft + BS nt/nd no guarding, no distension Musculoskeletal Exam: TENORIO x 4 without difficulty Strength Intact, ROM Intact Neurological: Positive: Alert, + sensation throughout Psychological: Positive: Normal Response To Family Skin: Positive: no rash, no ecchymosis Triage Information Reviewed: Yes Vital Signs: Initial Vital Signs Temp 101.9 F 11/18/17 12:24 Pulse 119 11/18/17 12:24 Resp 18 11/18/17 12:24 BP 112/72 11/18/17 12:24 Pulse Ox 100 11/18/17 12:24 Course/Dx - Course Course Of Treatment: Offered to speak to pts parents. Pt declined. Patient presents with 24 hours progressive fever and sore throat. Patient with a fever to 103 took 4 mg of Motrin prior to arrival. On exam patient with erythema of oropharynx. Patient with slight fullness of the left tonsillar area. Uvula midline. Patient without posturing difficulty with secretions. Patient again water. She strep is negative. We'll give patient prescription for Augmentin as well as prednisone. Will give patient contact information for ENT. Recommend patient be rechecked this week by ENT at [facility]. Strict return precautions discussed. Patient states understanding and agreement with plan. - Differential Dx - Multi-Symptom Provider Diagnoses: tonsillitis. early peritonsillar abscess Discharge - Sign-Out/Discharge Documenting (check all that apply): Patient Departure - Discharge All imaging exams completed and their final reports reviewed: No Studies - Discharge Plan Condition: Stable Disposition: HOME Prescriptions: Amoxicillin/Clavulanate TAB* [Augmentin TAB 875*] 875 mg PO BID #20 tab predniSONE TAB* [Deltasone TAB*] 50 mg PO DAILY #5 tab Patient Education Materials: Peritonsillar Abscess (ED), Tonsillitis (ED) Forms: *School Release Referrals: [facility] - Neil COSBY [Primary Care Provider] - (Call tomorrow for a follow-up appointment this week ) Additional Instructions: As discussed with the doctor that evaluated you, your left tonsil is slightly more swollen than the right side. It is possible this represents very early stages of an abscess by your tonsil. you have been started on both antibiotics and prednisone to treat this condition. It is recommended you schedule a recheck later this week to reassess your tonsil. - Take antibiotics and steroids as prescribed until gone - gargle and spit with warm, salt water - Okay to alternate ibuprofen (Advil, Motrin) 600mg and Tylenol 1000mg every 3 hours for pain. Take with food. Do NOT take for more than 4-5 days - Okay to gargle and spit every 4 hours as needed for pain - Stay well hydrated - frequent sips of cold fluids will be soothing to your throat (popsicles, jello, ice cream, ice water). Avoid excess caffeine until your symptoms have resolved. - Do not share eating, drinking utensils. Throw out your toothbrush after you have been on antibiotics for 2 days - You should be rechecked later this week. okay to contact [facility] or the ENT specialist at the number provided If you develop difficulty with swallowing, uncontrolled fever, drooling or any other concerns it is recommended you go directly to the emergency department. - Billing Disposition and Condition Condition: STABLE Disposition: Home - Attestation Statements Document Initiated by Angela: Yes Documenting Scribe: Dorothy Aguilera Provider For Whom Angela is Documenting (Include Credential): Jenelle Benson MD Scribe Attestation: IDorothy, scribed for Jenelle Benson MD on 11/18/17 at 1341. Scribe Documentation Reviewed: Yes Provider Attestation: The documentation as recorded by the Dorothy thompson accurately reflects the service I personally performed and the decisions made by me, Jenelle Benson MD
[2017-11-18] MEDS ORDERED: Amoxicillin/Clavulanate TAB* 875 MG PO ONE (13:28)
[2017-11-18] MEDS ORDERED: Acetaminophen TAB* 325 MG PO ONE (13:29)
== END 2017-11-18 13:49 | disposition home or self-care (01) ==
LOC: UCEAST 12:10
DX: J36 Peritonsillar abscess (principal)
CPT/HCPCS: 87651; 99212; A9270-GY; G0463

== ENCOUNTER 2017-11-22 16:10 | Emergency (ER) | payer OTHER ==
[2017-11-22 17:52] VITALS: BP 121/76
--- NOTE | 2017-11-22 18:05 | UC ---
Throat Pain/Nasal Jamarcus HPI - HPI Summary HPI Summary: 22-year-old male presents for follow-up of tonsillitis. He was seen here on 11/[address] Benson and diagnosed with tonsillitis and possible early peritonsillar abscess. He was started on Augmentin twice a day 10 days and prednisone 50 mg daily for 5 days. Patient states his symptoms have resolved at this time. Denies any fever, chills, dysphagia, trismus, or swollen lymph nodes. - History of Current Complaint Chief Complaint: UCRespiratory Stated Complaint: TONSILLITIS RE-CHECK Time Seen by Provider: 11/22/17 17:41 Hx Obtained From: Patient Onset/Duration: Gradual Onset Pain Intensity: 0 Cough: None Associated Signs & Symptoms: Positive: Negative - Allergies/Home Medications Allergies/Adverse Reactions: Allergies Allergy/AdvReac Type Severity Reaction Status Date / Time No Known Allergies Allergy Verified 11/22/17 17:52 PMH/Surg Hx/FS Hx/Imm Hx - Additional Past Medical History Additional PMH: Denies significant PMH Previously Healthy: Yes - Surgical History Surgical History: Yes Surgery Procedure, Year, and Place: EAR TUBES - Family History Known Family History: Positive: Other - mother has MS Family History: mother has MS - Social History Occupation: Student Lives: Dormitory/Roommates Alcohol Use: Occasionally Substance Use Type: None Substance Use Comment - Amount & Last Used: unknown Smoking Status (MU): Never Smoked Tobacco - Immunization History Most Recent Influenza Vaccination: 2018 Most Recent Pneumonia Vaccination: none Vaccination Up to Date: Yes Review of Systems Constitutional: Negative Skin: Negative ENT: Negative Respiratory: Negative Cardiovascular: Negative Gastrointestinal: Negative Is Patient Immunocompromised?: No All Other Systems Reviewed And Are Negative: Yes Physical Exam Triage Information Reviewed: Yes Appearance: Well-Appearing, No Pain Distress, Well-Nourished Vital Signs: Initial Vital Signs Temp 98.4 F 11/22/17 17:48 Pulse 53 11/22/17 17:48 Resp 16 11/22/17 17:48 BP 121/76 11/22/17 17:48 Pulse Ox 100 11/22/17 17:48 Eyes: Positive: Conjunctiva Clear. Negative: Discharge ENT: Positive: TMs normal, Uvula midline. Negative: Pharyngeal erythema, Nasal congestion, Nasal drainage, Tonsillar swelling, Tonsillar exudate Neck: Positive: Supple, Nontender, No Lymphadenopathy Respiratory: Positive: Lungs clear, Normal breath sounds, No respiratory distress Cardiovascular: Positive: RRR, No Murmur Neurological: Positive: Alert Skin Exam: Normal Throat Pain/Nasal Course/Dx - Course Course Of Treatment: 22 year old male presents for follow up tonsillitis and possible early peritonsillar abcess. Currently taking Augmentin and prednisone as prescribed. Symptoms resolved at time. Afebrile. He is to complete his regimen and follow up as needed. - Differential Dx/Diagnosis Provider Diagnoses: Tonsillitis Discharge - Sign-Out/Discharge Documenting (check all that apply): Patient Departure All imaging exams completed and their final reports reviewed: No Studies - Discharge Plan Condition: Stable Disposition: HOME Patient Education Materials: Tonsillitis (ED) Referrals: [facility] - Neil COSBY [Primary Care Provider] - If Needed Additional Instructions: Be sure to finish the Augmentin and prednisone as prescribed even though you are feeling better. Continue to push fluids. May use salt water gargles for any sore throat. Take acetaminophen (Tylenol) or ibuprofen (Advil, Motrin) as needed for any fever or pain. Follow up at [facility] for any problems. - Billing Disposition and Condition Condition: STABLE Disposition: Home
== END 2017-11-22 18:17 | disposition home or self-care (01) ==
LOC: UCEAST 16:10
DX: J03.90 Acute tonsillitis, unspecified (principal)
CPT/HCPCS: 99211; G0463